=== PATIENT | female | born 1975 | race Two or more races ===

== ENCOUNTER 2023-03-19 16:51 | Outpatient (OUT) | payer OTHER, SELFPAY ==
[2023-03-19 17:11] LABS: Basophils Absolute Auto 0.1 10^3/uL (0.0-0.1); Basophils Percent Auto 1.4 % (0.2-2.0); Eosinophils Percent Auto 0.8 % (0.9-7.0); Hematocrit 41.2 % (36.0-48.0); Hemoglobin 13.8 g/dL (12.0-16.0); Lymphocytes Absolute Auto 1.5 10^3/uL (1.2-3.8); Lymphocytes Percent Auto 41.1 % (20.5-60.0); Mean Corpuscular HGB Conc 33.5 g/dL (29.9-35.2); Mean Corpuscular Hemoglobin 31.1 pg (26.7-34.0); Mean Corpuscular Volume 92.8 fL (81.0-99.0); Mean Platelet Volume 8.5 fL (9.5-13.5); Monocytes Absolute Auto 0.4 10^3/uL (0.3-0.8); Monocytes Percent Auto 11.5 % (1.7-12.0); Neutrophils Absolute Auto 1.7 10^3/uL (1.4-6.5); Neutrophils Percent Auto 45.2 % (43.0-75.0); Platelet Count 314 10^3/uL (150-450); Red Blood Count 4.44 10^6/uL (4.20-5.40); Red Cell Distribution Width 13.2 % (11.0-15.0); White Blood Count 3.7 10^3/uL (4.0-11.0)
[2023-03-19 17:15] LABS: Bilirubin Urine NEGATIVE (NEGATIVE); Blood Urine TRACE-I (NEGATIVE); Clarity Urine CLEAR (CLEAR); Color Urine YELLOW (YELLOW); Glucose Urine UA NEGATIVE (NEGATIVE); Ketones Urine TRACE mg/dL (NEGATIVE); Leukocyte Esterase Urine NEGATIVE (NEGATIVE); Nitrite Urine NEGATIVE (NEGATIVE); Protein Urine NEGATIVE (NEG/TRACE); Specific Gravity Urine 1.025 (1.005-1.025); Urobilinogen Urine 0.2 EU/dL (0.2-1.0)
[2023-03-19 17:24] LABS: Bacteria Urine NONE SEEN #/HPF (NONE SEEN); Cast Seen? NONE SEEN #/LPF (NONE SEEN); Crystals Seen? None Seen #/HPF (None Seen); Mucus Urine NONE SEEN (NONE SEEN); RBC Urine 0-2 #/HPF (0-2); Squamous Epithelial Cell Urine NONE SEEN #/LPF (NONE/RARE); WBC Urine NONE SEEN #/HPF (NONE SEEN)
[2023-03-19 17:26] LABS: Uric Acid 4.1 mg/dL (2.6-6.0)
[2023-03-19 17:33] LABS: Erythrocyte Sedimentation Rate 14 mm/hr (<=20)
[2023-03-19 17:36] LABS: C Reactive Protein <0.2 mg/dL (<=1.0)
[2023-03-21 06:14] LABS: Antistreptolysin O Ab 137.1 IU/mL (0.0-200.0); Rheumatoid Factor (RF) <10.0 IU/mL (<14.0)
[2023-03-23 14:09] LABS: ANA Direct Positive (Negative); Anti-DNA (DS) Ab Qn 1 IU/mL (0-9); RNP Antibodies 0.2 AI (0.0-0.9); Sjogren's Anti-SS-A 0.4 AI (0.0-0.9); Sjogren's Anti-SS-B >8.0 AI (0.0-0.9)
== END 2023-03-19 16:52 | disposition home or self-care (01) ==
PROVIDERS: PCP Nurse Practitioner; Visit Provider Nurse Practitioner
DX: R31.21 Asymptomatic microscopic hematuria (principal); D72.819 Decreased white blood cell count, unspecified
CPT/HCPCS: 36415; 81001; 84550; 85025; 85652; 86038; 86060; 86140; 86430

== ENCOUNTER 2024-04-19 15:33 | Outpatient (OUT) | payer OTHER, SELFPAY ==
[2024-04-19 15:51] LABS: Basophils Percent Auto 0.8 % (0.2-2.0); Eosinophils Percent Auto 0.8 % (0.9-7.0); Hemoglobin 13.5 g/dL (12.0-16.0); Immature Granulocytes Abs Auto 0.01 10^3/uL (0.00-0.03); Immature Granulocytes Pct Auto 0.2 % (0.0-0.5); Lymphocytes Absolute Auto 1.4 10^3/uL (1.2-3.8); Lymphocytes Percent Auto 29.9 % (20.5-60.0); Mean Corpuscular HGB Conc 33.8 g/dL (29.9-35.2); Mean Corpuscular Volume 94.8 fL (81.0-99.0); Mean Platelet Volume 8.8 fL (9.5-13.5); Monocytes Absolute Auto 0.4 10^3/uL (0.3-0.8); Monocytes Percent Auto 8.8 % (1.7-12.0); Neutrophils Absolute Auto 2.8 10^3/uL (1.4-6.5); Neutrophils Percent Auto 59.5 % (43.0-75.0); Platelet Count 296 10^3/uL (150-450); Red Blood Count 4.22 10^6/uL (4.20-5.40); Red Cell Distribution Width 12.6 % (11.0-15.0); White Blood Count 4.8 10^3/uL (4.0-11.0)
[2024-04-19 15:52] LABS: Bilirubin Urine NEGATIVE (NEGATIVE); Blood Urine NEGATIVE (NEGATIVE); Clarity Urine CLEAR (CLEAR); Color Urine YELLOW (YELLOW); Glucose Urine UA NEGATIVE (NEGATIVE); Ketones Urine NEGATIVE (NEGATIVE); Leukocyte Esterase Urine NEGATIVE (NEGATIVE); Nitrite Urine NEGATIVE (NEGATIVE); Protein Urine TRACE mg/dL (NEG/TRACE); Specific Gravity Urine >=1.030 (1.005-1.025); pH Urine 5.5 (5.0-9.0)
[2024-04-19 15:57] LABS: Urine Microscopic Indicated NO
[2024-04-20 09:26] LABS: Alanine Aminotransferase 67 U/L (14-59); Albumin Globulin Ratio 1.1; Albumin Level 3.9 g/dL (3.4-5.0); Alkaline Phosphatase 102 U/L (46-116); Aspartate Amino Transferase 32 U/L (15-37); BUN Creatinine Ratio 15.5; Bilirubin Total 0.6 mg/dL (0.2-1.0); Calcium 8.6 mg/dL (8.5-10.1); Chloride 105 mmol/L (98-107); Chol HDL Ratio 3.2; Cholesterol 178 mg/dL (<=200); Estimated GFR (African America >60 (>=60); Estimated GFR (Non-African Ame >60 (>=60); Globulin 3.5 g/dL; Glucose 103 mg/dL (74-106); HDL Cholesterol 56 mg/dL (40-60); LDL Cholesterol Calculated 104.2 mg/dL; Potassium 3.9 mmol/L (3.5-5.1); Sodium 140 mmol/L (136-145); Total Protein 7.4 g/dL (6.4-8.2); Triglycerides 89 mg/dL (<=150); VLDL CHOLESTEROL 17.8 mg/dL
[2024-04-20 09:31] LABS: Anion Gap 13.6; Carbon Dioxide 25.3 mmol/L (21.0-32.0)
== END 2024-04-19 15:34 | disposition home or self-care (01) ==
LOC: LAB 15:34
PROVIDERS: PCP Nurse Practitioner; Visit Provider Nurse Practitioner
DX: D72.819 Decreased white blood cell count, unspecified (principal); Z72.0 Tobacco use; E66.9 Obesity, unspecified; R31.21 Asymptomatic microscopic hematuria
CPT/HCPCS: 36415; 80053; 80061; 81003; 85025

== ENCOUNTER 2024-10-24 15:38 | Emergency (ER) | payer OTHER, SELFPAY ==
[2024-10-24 15:49] VITALS: BP 142/92; PULSE 115; TEMP 37.8; O2SAT 96; BMI 29.2
--- NOTE | 2024-10-24 15:57 | ED.GENADUL1 ---
HPI HPI - General Adult General Chief complaint: Headache Stated complaint: SEVERE HEAD PAIN, SHOOTING PAIN BACK DOWN LEG Time Seen by Provider: 10/24/24 15:50 Source: patient Mode of arrival: Wheelchair History of Present Illness HPI narrative: 49-year-old female presents to the emergency department for a chief complaint of headache. She has had it for 3 days. She did not realize she had a fever. She also has some pain going down the back of her left leg and has no history of sciatica. No injury to the leg or her head. She took sumatriptan at home but it did not help. Related Data Home Medications ?Medication ?Instructions ?Recorded ?Confirmed etodolac 400 mg tablet mg 10/24/24 sumatriptan succinate 100 mg tablet mg PO 10/24/24 tizanidine 4 mg tablet mg 10/24/24 trazodone 50 mg tablet mg 10/24/24 Allergies Allergy/AdvReac Type Severity Reaction Status Date / Time No Known Drug Allergies Allergy Verified 10/24/24 15:47 Opioid HPI Opioid Management Most Recent Opioid Data: Last Pain Scale 6 10/24/24 17:43 10/24/24 Last ED Pain Assessment 10/24/24 17:43 Last MAR Pain Assessment 10/24/24 16:32 Review of Systems ROS Narrative A ten point review of systems is negative except as noted above. PFSH PFSH Social History Little interest or pleasure in doing things: not at all Feeling down, depressed, or hopeless: not at all Exam Narrative Exam Narrative: Nurses note and vital signs reviewed and patient is not hypoxic. General: The patient appears well and in no apparent distress. Patient is resting comfortably on cart. Skin: Warm, dry, no pallor noted. There is no rash noted. Head: Normocephalic, atraumatic; neck supple, no nuchal rigidity Eye: Normal conjunctiva, no drainage, EOMI. PERRL Ears, Nose, Mouth, and Throat: oral mucosa is moist. Nares patent. Cardiovascular: Regular Rate and Rhythm Respiratory: Patient is in no distress, no accessory muscle use, lungs are clear to auscultation, no wheezing, rales or rhonchi Back: non-tender GI: Soft and nontender Musculoskeletal: No bruise or rash to her back. Left hip has full range of motion Neurological: A&O, normal speech; upper and lower extremity strength is symmetric and intact Psychiatric: Cooperative Constitutional Vital Signs, click to edit/add: Last Vital Signs Temp 99.0 F 10/24/24 17:42 Pulse 99 H 10/24/24 17:42 Resp 14 10/24/24 17:42 BP 142/92 H 10/24/24 15:49 Pulse Ox 97 10/24/24 17:42 O2 Del Method Room Air 10/24/24 16:52 Course Vital Signs Vital signs: Vital Signs Temperature 100.1 F 10/24/24 15:49 Pulse Rate 115 H 10/24/24 15:49 Respiratory Rate 22 H 10/24/24 15:49 Blood Pressure 142/92 H 10/24/24 15:49 Pulse Oximetry 96 10/24/24 15:49 Oxygen Delivery Method Room Air 10/24/24 15:49 Temperature 99.0 F 10/24/24 17:42 Pulse Rate 99 H 10/24/24 17:42 Respiratory Rate 14 10/24/24 17:42 Blood Pressure 142/92 H 10/24/24 15:49 Pulse Oximetry 97 10/24/24 17:42 Oxygen Delivery Method Room Air 10/24/24 16:52 Medical Decision Making MDM Narrative Medical decision making narrative: The patient feels much better after being given IV fluids and IV morphine. She was noted to have a WBC of 1.5 and she has had low WBCs in the past, 3-4000. She has never had this investigated and she was referred to Dr. Sullivan for appropriate follow-up. My clinical impression is that she has a viral illness and antibiotics are not indicated. Treatment diagnosis and follow-up were discussed with the patient. Differential Diagnosis Differential Diagnosis: COVID, influenza, viral illness Lab Data Lab results reviewed: Yes I reviewed the patient's lab results Labs: Lab Results 10/24/24 10/24/24 Range/Units 16:20 16:25 WBC 1.5 L (4.0-11.0) 10^3/uL RBC 4.29 (4.20-5.40) 10^6/uL Hgb 13.5 (12.0-16.0) g/dL Hct 39.7 (36.0-48.0) % MCV 92.5 (81.0-99.0) fL MCH 31.5 (26.7-34.0) pg MCHC 34.0 (29.9-35.2) g/dL RDW 13.1 (11.0-15.0) % Plt Count 247 (150-450) 10^3/uL MPV 9.6 (9.5-13.5) fL Seg Neuts % (Manual) 78.0 H (43.0-75.0) Lymphocytes % (Manual) 18.0 L (20.5-60.0) % Monocytes % (Manual) 4.0 (1.7-12.0) % Eosinophils % (Manual) 0.0 L (0.9-7.0) % Basophils % (Manual) 0.0 L (0.2-2.0) % Neutrophils # (Manual) 1.17 L (1.4-6.5) 10^3/uL Lymphocytes # (Manual) 0.27 L (1.20-3.80) 10^3/uL Monocytes # (Manual) 0.06 L (0.30-0.80) 10^3/uL Eosinophils # (Manual) 0.00 (0.00-0.70) 10^3/uL Basophils # (Manual) 0.00 (0.00-0.10) 10^3/uL Sodium 139 (136-145) mmol/L Potassium 3.3 L (3.5-5.1) mmol/L Chloride 106 (98-107) mmol/L Carbon Dioxide 24.3 (21.0-32.0) mmol/L Anion Gap 12.0 BUN 9.0 (7.0-18.0) mg/dL Creatinine 0.58 (0.55-1.02) mg/dL Est GFR ( Amer) >60 (>=60 mL/min/1.73m^2) Est GFR (Non-Af Amer) >60 (>=60 mL/min/1.73m^2) BUN/Creatinine Ratio 15.5 Glucose 107 H (74-106) mg/dL Calcium 7.9 L (8.5-10.1) mg/dL Influenza Type A Ag Negative Influenza Type B Ag Negative SARS-CoV-2 Ag (CV2AG) Negative (NEGATIVE) Discharge Plan Discharge Chief Complaint: Headache Clinical Impression: Viral illness, Leukopenia Patient Disposition: Home, Self-Care Time of Disposition Decision: 17:46 Condition: Good Mode of Transportation: Private Vehicle Prescriptions / Home Meds: No Action trazodone 50 mg tablet tizanidine 4 mg tablet sumatriptan succinate 100 mg tablet PO etodolac 400 mg tablet Print Language: Armenian Instructions: Viral Syndrome (ED) Referrals: Kimberly Sullivan MD [Physician] - 1 week Joselyn Arizmendi NP [Primary Care Provider] - 1 week
--- OUTSIDE RECORDS SUMMARY | 2024-10-24 16:03 | XMS_ITS | CCD ---
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 Name Role Phone AICHHOLZ, RECORDS CLERK JOSELYN Admitting Unavailable AICHHOLZ, RECORDS CLERK JOSELYN Attending Unavailable AICHHOLZ, RECORDS CLERK JOSELYN Primary Care Unavailable AICHHOLZ, RECORDS CLERK JOSELYN Consulting Unavailable Reuben Vergara Consulting Unavailable AICHHOLZ, RECORDS CLERK JOSELYN Admitting Unavailable AICHHOLZ, RECORDS CLERK JOSELYN Attending Unavailable AICHHOLZ, RECORDS CLERK JOSELYN Primary Care Unavailable AICHHOLZ, RECORDS CLERK JOSELYN Consulting Unavailable KIRAN JEAN Admitting Unavailable KIRAN JEAN Attending Unavailable AICHHOLZ, RECORDS CLERK JOSELYN Primary Care Unavailable DR HAYDEE DE JESUS V Consulting Unavailable KIRAN JEAN Consulting Unavailable AICHHOLZ, RECORDS CLERK JOSELYN Admitting Unavailable AICHHOLZ, RECORDS CLERK JOSELYN Attending Unavailable AICHHOLZ, RECORDS CLERK JOSELYN Primary Care Unavailable Aichholz HUMAN RESOURCE OFFICER, Joselyn Unavailable Michael Tellez MD Primary Care Provider AICHHOLZ, JOSELYN Attending Unavailable AICHHOLZ, JOSELYN Attending Unavailable Aichholz HUMAN RESOURCE OFFICER, Joselyn Unavailable Medications Current Medications Medication Drug Class(es) Dates Sig (Normalized) Sig (Original) amitriptyline hydrochloride 10 mg oral tablet (2 sources) Tricyclic Antidepressant take 1 tablet by mouth at bedtime amitriptyline (Elavil) 10 MG tablet Take 10 mg by mouth at bedtime 0 Active Atogepant (Qulipta) 60 MG tablet (8 sources) take 1 tablet by mouth once daily Atogepant (Qulipta) 60 MG tablet Take 60 mg by mouth Daily Active SUMAtriptan 100 mg oral tablet (15 sources) Serotonin-1b and Serotonin-1d Receptor Agonist Start: 08-07-2024 SUMAtriptan (Imitrex) 100 MG tablet Indications: Migraine without status migrainosus, not intractable, unspecified migraine type (CMS/HCC) TAKE 1 TAB AT MIGRAINE ONSET MAY REPEAT 1 TAB IN 2HRS IF NEEDED *MAX 2/24HRS & 2X PER WK 9 tablet 1 08/07/2024 Active Start: 08-07-2024 SUMAtriptan (I mitrex) 100 MG tablet Indications: Migraine without status migrainosus, not intractable, unspecified migraine type (CMS/HCC) TAKE 1 TAB AT MIGRAINE ONSET MAY REPEAT 1 TAB IN 2HRS IF NEEDED *MAX 2/24HRS & 2X PER WK 9 tablet 1 08/07/2024 Active Start: 03-27-2024 End: 08-07-2024 SUMAtriptan (Imitrex) 100 MG tablet Indications: Migraine without status migrainosus, not intractable, unspecified migraine type (CMS/HCC) TAKE 1 TAB AT MIGRAINE ONSET MAY REPEAT 1 TAB IN 2HRS IF NEEDED *MAX 2/24HRS & 2X PER WK 9 tablet 1 06/05/2024 08/07/2024 Discontinued Start: 09-28-2023 SUMAtriptan (I mitrex) 100 MG tablet Indications: Migraine without status migrainosus, not intractable, unspecified migraine type (CMS/HCC) May take 1 pill at the onset of a migraine CASTORENA, may repeat in 2 hours if needed. No more than 2 pills in 24 hours, and no more than twice a week 9 tablet 1 09/28/2023 Active Start: 08-03-2023 End: 09-28-2023 SUMAtriptan (Imitrex) 100 MG tablet Indications: Migraine, unspecified, intractable, with status migrainosus (CMS/HCC) TAKE 1 TAB AT ONSET OF MIGRAINE CASTORENA, MAY REPEAT IN 2 HRS IF NEEDED. MAX 2 TABS/24HRS, 2 TIMES/WK 9 tablet 1 08/03/2023 09/28/2023 Discontinued tiZANidine 4 mg oral tablet (15 sources) Central alpha-2 Adrenergic Agonist Start: 03-27-2024 End: 09-29-2024 take 1 tablet by mouth once tiZANidine (Zanaflex) 4 MG tablet Indications: Neck pain Take 1 tablet (4 mg) by mouth every 12 (twelve) hours if needed for muscle spasms 180 tablet 07/01/2024 09/29/2024 Active Start: 09-28-2023 End: 10-28-2023 take 1 tablet by mouth once tiZANidine (Zanaflex) 4 MG tablet Indications: Neck pain Take 1 tablet (4 mg) by mouth every 12 (twelve) hours if needed for muscle spasms 180 tablet 0 09/28/2023 10/28/2023 Active take 1 capsule by mo uth twice daily as needed for muscle spasms tiZANidine (Zanaflex) 4 MG capsule Take 4 mg by mouth 2 (two) times a day as needed for muscle spasms 0 Active traZODone hydrochloride 50 mg oral tablet (14 sources) Serotonin Reuptake Inhibitor Start: 06-13-2024 End: 10-09-2024 take 1 tablet by mouth at bedtime traZODone (Desyrel) 50 MG tablet Indications: Insomnia Take 1 tablet (50 mg) by mouth at bedtime 90 tablet 07/11/2024 10/09/2024 Active Start: 12-23-2023 take 1 tablet by doroteo at bedtime traZODone (Desyrel) 50 MG tablet Indications: Insomnia Take 1 tablet (50 mg) by mouth at bedtime 90 tablet 1 12/23/2023 Active Start: 07-16-2023 End: 10-14-2023 take 1 tablet by mouth at bedtime traZODone (Desyrel) 50 MG tablet Indications: Insomnia, unspecified , Insomnia Take 1 tablet (50 mg) by mouth at bedtime. 90 tablet 1 07/16/2023 10/14/2023 Active Completed/Discontinued Medications Medication Drug Class(es) Dates Sig (Normalized) Sig (Original) etodolac 400 mg oral tablet (4 sources) Nonsteroidal Anti-inflammatory Drug Start: 12-08-2023 End: 04-19-2024 take 1 tablet by mouth twice daily as needed etodolac (Lodine) 400 MG tablet Take 400 mg by mouth 2 (two) times a day as needed 12/08/2023 04/19/2024 Discontinued (Therapy completed) Problems Active Problems Problem Classification Problem Date Documented Da te Episodic/Chronic Anxiety disorders (12 sources) Mixed anxiety and depressive disorder; Translations: [Anxiety disorder, unspecified] Onset: 09-28-2023 09-28-2023 Chronic Diseases of white blood cells (11 sources) Leukopenia; Translations: [Decreased white blood cell count, unspecified] Onset: 11-03-2023 11-03-2023 Chronic Headache; including migraine (19 sources) Refractory migraine; Translations: [Migraine, unspecified, intractable, with status migrainosus] Onset: 09-28-2023 09-28-2023 Chronic Other nutritional; endocrine; and metabolic disorders (11 sources) Body mass index 30+ - obesity; Translations: [Obesity, unspecified] Onset: 11-26-2023 11-26-2023 Chronic Residual codes; unclassified (4 sources) Other specified health status; Translations: [OTHER SPECIFIED HEALTH STATUS] Onset: 11-05-2022 Episodic Residual codes; unclassified (2 sources) Insomnia; Translations: [Insomnia, unspecified] 06-12-2024 Episodic Past or Other Problems Problem Classification Problem Date Documented Date Episodic/Chronic Genitourinary symptoms and ill-defined conditions (11 sources) Asymptomatic microscopic hematuria; Translations: [Asymptomatic microscopic hematuria] Onset: 11-03-2023 11-03-2023 Episodic Immunizations and screening for infectious disease (14 sources) Anti-nuclear factor positive; Translations: [Other specified abnormal immunological findings in serum] Onset: 11-03-2023 11-03-2023 Episodic Other acquired deformities (11 sources) Equinus contracture of the ankle; Translations: [Contracture, left ankle] Onset: 11-03-2023 Resolved: 11-03-2023 11-03-2023 Chronic Other connective tissue disease (4 sources) Pain in left foot; Translations: [PAIN IN LEFT FOOT] Onset: 02-11-2022 Episodic Other connective tissue disease (11 sources) Ganglion cyst of right hand; Translations: [Ganglion, right hand] Onset: 11-03-2023 11-03-2023 Episodic Other screening for suspected conditions (not mental disorders or infectious disease) (20 sources) Encounter for screening mammogram for malignant neoplasm of breast; Translations: [Patient encounter status] Onset: 11-25-2022 Episodic Residual codes; unclassified (11 sources) Tobacco user; Translations: [Tobacco use] Onset: 11-03-2023 11-03-2023 Episodic Spondylosis; intervertebral disc disorders; other back problems (20 sources) Neck pain; Translations: [Cervicalgia] Onset: 01-22-2021 09-27-2023 Episodic Viral infection (11 sources) Herpes zoster without complication; Translations: [Zoster without complications] Onset: 11-24-2023 11-24-2023 Episodic Results Test Name Value Interpretation Reference Range Facility ALL CBC WITH AUTO DIFFon BASOPHILS ABSOLUTE AUTO 0.0 [facility] Basophils/100 WBC (Bld) 0.8 % 0.2 - 2.0 % [facility] Eosinophils/100 WBC (Bld) 0.8 % Low 0.9 - 7.0 % [facility] Erythrocyte distribution width (RBC) [Ratio] 12.6 % 11.0 - 15.0 % [facility] Hematocrit (Bld) [Volume fraction] 40.0 % 36.0 - 48.0 % [facility] Hemoglobin (Bld) [Mass/Vol] 13.5 g/dL 12.0 - 16.0 g/dL [facility] IMMATURE GRANULOCYTES ABS AUTO 0.01 [facility] Immature granulocytes/100 WBC (Bld) 0.2 % 0.0 - 0.5 % [facility] Interpretation and review of laboratory results Abnormal [facility] LYMPHOCYTES ABSOLUTE AUTO 1.4 [facility] Lymphocytes/100 WBC (Bld) 29.9 % 20.5 - 60.0 % [facility] MCH (RBC) [Entitic mass] 32.0 pg 26.7 - 34.0 pg [facility] MCHC (RBC) [Mass/Vol] 33.8 g/dL 29.9 - 35.2 g/dL [facility] MCV (RBC) [Entitic vol] 94.8 fL 81.0 - 99.0 fL [facility] MONOCYTES ABSOLUTE AUTO 0.4 [facility] Monocytes/100 WBC (Bld) 8.8 % 1.7 - 12.0 % [facility] NEUTROPHILS ABSOLUTE AUTO 2.8 [facility] Neutrophils/100 WBC (Bld) 59.5 % 43.0 - 75.0 % [facility] Platelet mean volume (Bld) [Entitic vol] 8.8 fL Low 9.5 - 13.5 fL [facility] EO # 0.0 [facility] PLT 296 [facility] RBC 4.22 [facility] WBC 4.8 [facility] UA (CLEAN/CATCH) MICROSC OPIC IF INDICATEon 04-19-2024 BILIRUBIN URINE Negative NEGATIVE [facility] BLOOD URINE Negative NEGATIVE [facility] Clarity (U) CLEAR CLEAR [facility] Color (U) YELLOW YELLOW [facility] GLUCOSE URINE UA Negative NEGATIVE mg/dL [facility] Interpretation and review of laboratory results Abnormal [facility] Ketones Ql (U) Negative NEGATIVE mg/dL [facility] Leukocyte esterase Test strip Ql (U) Negative NEGATIVE [facility] NITRITE URINE Negative NEGATIVE [facility] pH (U) 5.5 [pH] 5.0 - 9.0 [facility] PROTEIN URINE TRACE NEG/TRACE mg/dL [facility] SPECIFIC GRAVITY URINE >=1.030 Abnormal 1.005 - 1.025 [facility] URINE MICROSCOPIC INDICATED NO [facility] UROBILINOGEN URINE 1.0 EU/dL 0.2 - 1.0 EU/dL [facility] MG MAMM SCREEN 3D RODGER CADon 11-25-2022 MG MAMM SCREEN 3D RODGER CAD Patient: RAMON DUBOIS Exam Date: 11/25/2022 : 1975 Gender:F Ordering : CESAR ARIZMENDI [facility] Admission #: [id number] Family : Order #: [id number] CLICK HERE TO VIEW EXAM RADIOLOGY REPORT PROCEDURE: MAMMOGRAM SCREENING 3D BILATERAL CAD COMPARISON: MAMMO POST BIOPSY BILATERAL, 09/17/2021. MG MAMM RODGER DIAG W CAD, 08/13/2021. INDICATIONS: Screening mammography Calculator Name NCI Breast Cancer Risk Assessment Tool 5 Year Breast Cancer Risk Not Reported. Lifetime Breast Cancer Risk Not Reported. Personal Breast Cancer No Personal Ovarian Cancer No Treatments None Family Cancers None LOCATION: [facility] BREAST COMPOSITION: Scattered areas fibroglandular density. FINDINGS: DIAGNOSTIC CATEGORY 2--BENIGN FINDING: RIGHT BREAST: No significant suspicious finding. Stable biopsy marker clip within upper-outer quadrant. No significant change has occurred. LEFT BREAST: No significant suspicious finding. Stable biopsy marker clip within upper-outer quadrant. No significant change has occurred. RECOMMENDATIONS: ROUTINE MAMMOGRAM AND CLINICAL EVALUATION IN 12 MONTHS. PLEASE NOTE: A NORMAL MAMMOGRAM DOES NOT EXCLUDE THE POSSIBILITY OF BREAST CANCER. A CLINICALLY SUSPICIOUS PALPABLE LUMP SHOULD BE BIOPSIED. Dictated by: Reuben Vergara M.D. on 11/26/2022 at 12:21 Approved by: Reuben Vergara M.D. on 11/26/2022 at 12:26 Normal [facility] CBC AUTO DIFFon 11-05-2022 BASO # 0.0 103/ul Normal 0.0-0.1 [facility] Comment on above: Performed By: #### C BC #### [facility] [address] [address] [address] Steve Tenorio Basophils/100 WBC (Bld) 1.1 % Normal 0.2-2.0 [facility] Comment on above: Performed By: #### C BC #### [facility] [address] [address] [address] Steve Tenorio EO # 0.0 103/ul Normal 0.0-0.7 [facility] Comment on above: Performed By: #### C BC #### [facility] [address] [address] [address] Steve Tenorio Eosinophils/100 WBC (Bld) 0.8 % Critically low 0.9-7.0 [facility] Comment on above: Performed By: #### C BC #### [facility] [address] [address] [address] Steve Tenorio Erythrocyte distribution width (RBC) [Ratio] 12.4 % Normal 11.0-15.0 [facility] Comment on above: Performed By: #### C BC #### [facility] [address] [address] [address] Steve Tenorio Hematocrit (Bld) [Volume fraction] 41.2 % Normal 36.0-48.0 [facility] Comment on above: Performed By: #### C BC #### [facility] [address] [address] [address] Steve Tenorio Hemoglobin (Bld) [Mass/Vol] 14.0 g/dL Normal 12.0-16.0 [facility] Comment on above: Performed By: #### C BC #### [facility] [address] [address] [address] Steve Tenorio IG # 0.01 10e3/ul Normal 0.00-0.03 [facility] Comment on above: Performed By: #### C BC #### [facility] [address] [place] [address] Dr. Steve Tenorio IG % 0.3 % Normal 0.0-0.5 [facility] Comment on above: Performed By: #### C BC #### [facility] [address] [place] [address] Dr. Steve Tenorio LYMPH # 1.4 103/ul Normal 1.2-3.8 [facility] Comment on above: Performed By: #### C BC #### [facility] [address] [place] [address] Dr. Steve Tenorio Lymphocytes/100 WBC (Bld) 39.3 % Normal 20.5-60.0 [facility] Comment on above: Performed By: #### C BC #### [facility] [address] [place] [address] Dr. Steve Tenorio MANUAL DIFF REQ NO Normal [facility] Comment on above: Performed By: #### C BC #### [facility] [address] [place] [address] Dr. Steve Tenorio MCH (RBC) [Entitic mass] 30.8 pg Normal 26.7-34.0 [facility] Comment on above: Performed By: #### C BC #### [facility] [address] [place] [address] Dr. Steve Tenorio MCHC (RBC) [Mass/Vol] 34.0 g/dL Normal 29.9-35.2 [facility] Comment on above: Performed By: #### C BC #### [facility] [address] [place] [address] Dr. Steve Tenorio MCV (RBC) [Entitic vol] 90.7 fL Normal 81.0-99.0 [facility] Comment on above: Performed By: #### C BC #### [facility] [address] [place] [address] Dr. Steve Tenorio MONO # 0.3 103/ul Normal 0.3-0.8 [facility] Comment on above: Performed By: #### C BC #### [facility] [address] [address] [address] Steve Tenorio Monocytes/100 WBC (Bld) 9.3 % Normal 1.7-12.0 [facility] Comment on above: Performed By: #### C BC #### [facility] [address] [address] [address] Steve Tenorio NEUT # 1.8 103/ul Normal 1.4-6.5 [facility] Comment on above: Performed By: #### C BC #### [facility] [address] [address] [address] Steve Tenorio Neutrophils/100 WBC (Bld) 49.2 % Normal 43.0-75.0 [facility] Comment on above: Performed By: #### C BC #### [facility] [address] [place] [address] Dr. Steve Tenorio Platelet mean volume (Bld) [Entitic vol] 8.8 fL Critically low 9.5-13.5 [facility] Comment on above: Performed By: #### C BC #### [facility] [address] [place] [address] Dr. Steve Tenorio PLT 306 103/ul Normal 150-450 [facility] Comment on above: Performed By: #### C BC #### [facility] [address] [place] [address] Dr. Steve Tenorio RBC 4.54 106/ul Normal 4.20-5.40 [facility] Comment on above: Performed By: #### C BC #### [facility] [address] [place] [address] Dr. Steve Tenorio WBC 3.6 103/ul Critically low 4.0-11.0 [facility] Comment on above: Performed By: #### C BC #### [facility] [address] [place] [address] Dr. Steve Tenorio LIPID PROFILEon 11-05-2022 CHOL-HDL RATIO NORM SEE BELOW Normal [facility] Comment on above: Result Comment: 3.3 - 4.4 LOW RISK 4.4 - 7.1 AVERAGE RISK 7.1 - 11.0 MODERATE RISK >11.0 HIGH RISK Performed By: #### C MP, LIPID #### [facility] [address] [address] [address] Steve Tenorio Cholesterol [Mass/Vol] 198 mg/dL Normal <=200 [facility] Comment on above: Performed By: #### C MP, LIPID #### [facility] [address] [address] [address] Stvee Tenorio Cholesterol in HDL [Mass/Vol] 63 mg/dL Critically high 40-60 [facility] Comment on above: Performed By: #### C MP, LIPID #### [facility] [address] [place] [address] Dr. Steve Tenorio Cholesterol in LDL [Mass/Vol] 123.0 mg/dL Normal [facility] Comment on above: Performed By: #### C MP, LIPID #### [facility] [address] [place] [address] Dr. Steve Tenorio Cholesterol.total/Ch olesterol in HDL [Mass ratio] 3.1 {ratio} Normal [facility] Comment on above: Performed By: #### C MP, LIPID #### [facility] [address] [place] [address] Dr. Steve Tenorio HDL NORMAL > or = 60 mg/dl - LOW CARDIOVASCULAR RISK <40 mg/dl - HIGH CARDIOVASCULAR RISK Normal [facility] Comment on above: Performed By: #### C MP, LIPID #### [facility] [address] [place] [address] Dr. Steve Tenorio LDL CALC NORMAL SEE BELOW Normal [facility] Comment on above: Result Comment: <100 mg/dl OPTIMAL 100 - 129 mg/dl NEAR OR ABOVE OPTIMAL 130 - 159 mg/dl BORDERLINE HIGH 160 - 189 mg/dl HIGH >190 mg/dl VERY HIGH Performed By: #### C MP, LIPID #### [facility] [address] [place] [address] Dr. Steve Tenorio Triglyceride [Mass/Vol] 60 mg/dL Normal <=150 [facility] Comment on above: Performed By: #### C MP, LIPID #### [facility] [address] [place] [address] Dr. Steve Tenorio VLDL CALC 12.0 mg/dL Normal [facility] Comment on above: Performed By: #### C MP, LIPID #### [facility] [address] [place] [address] Dr. Steve Tenorio PROF 14(COMP METB)on 023 Albumin [Mass/Vol] 4.1 g/dL Normal 3.4-5.0 [facility] Comment on above: Performed By: #### C MP, LIPID #### [facility] [address] [place] [address] Dr. Steve Tenorio Albumin/Globulin [Mass ratio] 1.1 {ratio} Normal [facility] Comment on above: Performed By: #### C MP, LIPID #### [facility] [address] [place] [address] Dr. Steve Tenorio ALP [Catalytic activity/Vol] 84 U/L Normal 46-116 [facility] Comment on above: Performed By: #### C MP, LIPID #### [facility] [address] [place] [address] Dr. Steve Tenorio ALT [Catalytic activity/Vol] 29 U/L Normal 14-59 [facility] Comment on above: Performed By: #### C MP, LIPID #### [facility] [address] [place] [address] Dr. Steve Tenorio Anion gap [Moles/Vol] 14.2 mmol/L Normal [facility] Comment on above: Performed By: #### C MP, LIPID #### [facility] [address] [place] [address] Dr. Steve Tenorio AST [Catalytic activity/Vol] 22 U/L Normal 15-37 [facility] Comment on above: Performed By: #### C MP, LIPID #### [facility] [address] [place] [address] Dr. Steve Tenorio Bilirubin [Mass/Vol] 0.7 mg/dL Normal 0.2-1.0 [facility] Comment on above: Performed By: #### C MP, LIPID #### [facility] [address] [address] [address] Steve Tenorio Calcium [Mass/Vol] 8.8 mg/dL Normal 8.5-10.1 [facility] Comment on above: Performed By: #### C MP, LIPID #### [facility] [address] [address] [address] Steve Tenorio Chloride [Moles/Vol] 104 mmol/L Normal 98-107 [facility] Comment on above: Performed By: #### C MP, LIPID #### [facility] [address] [place] [address] Dr. Steve Tenorio CO2 [Moles/Vol] 25.7 mmol/L Normal 21.0-32.0 [facility] Comment on above: Performed By: #### C MP, LIPID #### [facility] [address] [place] [address] Dr. Steve Tenorio Creatinine [Mass/Vol] 0.56 mg/dL Normal 0.55-1.02 [facility] Comment on above: Performed By: #### C MP, LIPID #### [facility] [address] [address] [address] Steve Tenorio EGFR-AF PUERTO RICAN >60 Normal >=60 [facility] Comment on above: Performed By: #### C MP, LIPID #### [facility] [address] [place] [address] Dr. Steve Tenorio EGFR-NON AF PUERTO RICAN >60 Normal >=60 [facility] Comment on above: Performed By: #### C MP, LIPID #### [facility] [address] [place] [address] Dr. Steve Tenorio Globulin (S) [Mass/Vol] 3.6 g/dL Normal [facility] Comment on above: Performed By: #### C MP, LIPID #### [facility] [address] [address] [address] Steve Tenorio Glucose [Mass/Vol] 103 mg/dL Normal 74-106 [facility] Comment on above: Performed By: #### C MP, LIPID #### [facility] [address] [place] [address] Dr. Steve Tenorio Potassium [Moles/Vol] 3.9 mmol/L Normal 3.5-5.1 [facility] Comment on above: Performed By: #### C MP, LIPID #### [facility] [address] [place] [address] Dr. Steve Tenorio Protein [Mass/Vol] 7.7 g/dL Normal 6.4-8.2 [facility] Comment on above: Performed By: #### C MP, LIPID #### [facility] [address] [place] [address] Dr. Steve Tenorio Sodium [Moles/Vol] 140 mmol/L Normal 136-145 [facility] Comment on above: Performed By: #### C MP, LIPID #### [facility] [address] [place] [address] Dr. Steve Tenorio Urea nitrogen [Mass/Vol] 10.0 mg/dL Normal 7.0-18.0 [facility] Comment on above: Performed By: #### C MP, LIPID #### [facility] [address] [place] [address] Dr. Steve Tenorio Urea nitrogen/Creatinine [Mass ratio] 17.9 mg/mg Normal [facility] Comment on above: Performed By: #### C MP, LIPID #### [facility] [address] [place] [address] Dr. Steve Tenorio UA RANDOM W/MICROSCOPICon BACTERIA NONE SEEN Normal NONE SEEN [facility] Comment on above: Performed By: #### U AMIC #### [facility] [address] [place] [address] Dr. Steve Tenorio Bilirubin Ql (U) Negative Normal NEGATIVE [facility] Comment on above: Performed By: #### U AMIC #### [facility] [address] [place] [address] Dr. Steve Tenorio CAST NONE SEEN Normal NONE SEEN [facility] Comment on above: Performed By: #### U AMIC #### [facility] [address] [place] [address] Dr. Steve Tenorio Clarity (U) CLEAR Normal CLEAR [facility] Comment on above: Performed By: #### U AMIC #### [facility] [address] [address] [address] Steve Tenorio Color (U) YELLOW Normal YELLOW [facility] Comment on above: Performed By: #### U AMIC #### [facility] [address] [address] [address] Steve Tenorio Crystals LM Nom (Urine sed) NONE SEEN Normal NONE SEEN [facility] Comment on above: Performed By: #### U AMIC #### [facility] [address] [address] [address] Steve Tenorio Epithelial cells LM Ql (Urine sed) FEW Abnormal NONE SEEN /RARE [facility] Comment on above: Performed By: #### U AMIC #### [facility] [address] [address] [address] Steve Tenorio Glucose Ql (U) Negative Normal NEGATIVE [facility] Comment on above: Performed By: #### U AMIC #### [facility] [address] [address] [address] Steve Tenorio Hemoglobin Ql (U) Negative Normal NEGATIVE [facility] Comment on above: Performed By: #### U AMIC #### [facility] [address] [address] [address] Steve Tenorio Ketones Ql (U) Negative Normal NEGATIVE [facility] Comment on above: Performed By: #### U AMIC #### [facility] [address] [address] [address] Steve Tenorio LEUKOCYTES Negative Normal NEGATIVE [facility] Comment on above: Performed By: #### U AMIC #### [facility] [address] [address] [address] Steve Tenorio MUCOUS SMALL Abnormal NONE SEEN [facility] Comment on above: Performed By: #### U AMIC #### [facility] [address] [address] [address] Steve Tenorio Nitrite Ql (U) Negative Normal NEGATIVE [facility] Comment on above: Performed By: #### U AMIC #### [facility] [address] [place] [address] Dr. Steve Tenorio pH (U) 6.0 [pH] Normal 5-9 [facility] Comment on above: Performed By: #### U AMIC #### [facility] [address] [place] [address] Dr. Steve Tenorio RBC 5-10 Abnormal 0-2 [facility] Comment on above: Performed By: #### U AMIC #### [facility] [address] [place] [address] Dr. Steve Tenorio SPEC GRAVITY 1.025 Normal 1.005-<=1.025 [facility] Comment on above: Performed By: #### U AMIC #### [facility] [address] [place] [address] Dr. Steve Tenorio UA PROTEIN Negative Normal NEGATIVE/ TRACE [facility] Comment on above: Performed By: #### U AMIC #### [facility] [address] [place] [address] Dr. Steve Tenorio Urobilinogen Qn (U) 0.2 {Julissa'U}/dL Normal 0.2 - 1. 0 [facility] Comment on above: Performed By: #### U AMIC #### [facility] [address] [place] [address] Dr. Steve Tenorio WBC 0-2 Abnormal NONE SEEN [facility] Comment on above: Performed By: #### U AMIC #### [facility] [address] [place] [address] Dr. Steve Tenorio [facility] 02-15-2021 [facility] HNO ID: [id number] Author: Charla Cullen, GARRISON Service: ? Author Type: Gynecological Assistant Type: Allied Health Filed: 02/15/2021 1:48 PM Note Text: Radiology Service Progress Note PATIENT NAME: Ramon Dubois DATE OF SERVICE: February 15, 2021 TIME: 1:48 PM PATIENT IDENTITY VERIFICATION COMPLETED USING TWO (2) IDENTIFIERS: Name and Date of confirmed by patient verbally. FALL SCREENING: Has the patient had 2 falls in the last year or 1 fall with injury or currently using an Ambulatory Assistive Device (Walker, Cane, Wheelchair, Crutches, etc.)? No PATIENT GENDER DATA: Female. status: : No status: NO. PATIENT RELEVANT IMPLANT DATA REVIEWED: Not Applicable RADIOLOGY DEPARTMENT: CT; Exam(s) Completed: CTA Brain PERIPHERAL IV DATA: Inpatient: see LDA documentation SIGNED BY: GARRISON Mendez February 15, 2021 1:48 PM [facility] CTA HEAD W IVCONon CTA HEAD W IVCON * * *Final Report* * * DATE OF EXAM: Feb 15 2021 1:53PM FVC 0022 - CTA HEAD W IVCON / PROCEDURE REASON: multiple diagnoses * * * * Physician Interpretation * * * * EXAMINATION: CTA HEAD W IVCON HISTORY: Family history of ischemic heart disease and other diseases of the circulatory system Family history of cerebral aneurysm TECHNIQUE: Spiral high resolution axial images were obtained through the head following bolus administration of intravenous contrast for CT angiography. 3D maximum intensity projection images were created, reviewed and archived . MQ: CTAB_4 Contrast: 80 mL Omnipaque [address] Radiation dose: Integrated Dose-Length Product (DLP) for this visit = 294 mGy*cm. CT Dose Reduction Employed: Automated exposure control (AEC) COMPARISON: None. RESULT: BRAIN: Evaluation of the individual slices of the CTA demonstrates no evidence of an acute stroke. ASPECT Score = 10 Spot Sign Presence: Not Applicable Spot Sign Number: Not Applicable ARTERIOGRAM: The petrous, cavernous, and supraclinoid internal carotid arteries are patent. Anterior cerebral arteries and middle cerebral arteries are patent. Intracranial vertebral arteries, basilar artery, and posterior cerebral arteries are patent. No vessel cutoffs or aneurysms are identified. Special Delivery Carrier (topogram) images: Noncontributory. IMPRESSION: No large vessel occlusion or high-grade stenosis. Arterial blood flow was measured to detect acute large vessel occlusion by computer aided detection software: Not Performed. Concordance between software and imaging review: Not Applicable. Malted Milk Masher: PSCB Transcribe Date/Time: Feb 15 2021 2:23P Dictated by : RADHA DUMONT MD This examination was interpreted and the report reviewed and electronically signed by: RADHA DUMONT MD on Feb 15 2021 2:28PM EST [id number] CN [facility] NURSING PROGon 02-15-2021 NURSING PROG HNO ID: [id number] Author: Tanvi Hall RN Service: Radiology Author Type: Registered Nurse Type: Nursing Progress Note Filed: 02/15/2021 1:34 PM Note Text: Radiology Service Progress Note DATE OF SERVICE: February 15, 2021 TIME: 1:33 PM PATIENT WEIGHT: 180LBS PATIENT IDENTITY VERIFICATION COMPLETED USING TWO (2) STANDARD IDENTIFIERS: Name and Date of confirmed by patient verbally and Name and Date of confirmed by identification band. FALL SCREENING: Has the patient had 2 falls in the last year or 1 fall with injury or currently using an Ambulatory Assistive Device (Walker, Cane, Wheelchair, Crutches, etc.)? No PATIENT GENDER DATA: Female. status: : No status: NO. ALLERGIES: Reviewed and unchanged CONTRAST ALLERGY: No EXAM: CT -CONTRAST INDUCED NEPHROPATHY RISK FACTORS: Not applicable CREATININE: No results found for: CREAT, EGFROTH, EGFRAA P.O.C.T. RESULTS: N/A February 15, 2021 TREATMENT: N/A and No Hydration needed. IV SITE: Ambulatory: A peripheral IV was started in the Right forearm with a Angio cath: 20 gauge.i.25 diffusics under ultrasound guidance IV SITE APPEARANCE: Clean,Dry and Intact SIGNATURE: Tanvi Hall RN PATIENT NAME: Ramon Dubois DATE: February 15, 2021 TIME: 1:33 PM [facility] Vital Signs Date Time Vital Sign Value Performing Clinician Gti skyler 04-19-2024 14:33-0400 Body height 165.1 cm Joselyn Arizmendi HUMAN RESOURCE OFFICER Work Phone: [facility] 04-19-2024 14:33-0400 Body mass index (BMI) [Ratio] 29.29 kg/m2 Joselyn Arizmendi HUMAN RESOURCE OFFICER Work Phone: [facility] 04-19-2024 14:33-0400 Body temperature 97.81 [degF] Joselyn Arizmendi HUMAN RESOURCE OFFICER Work Phone: [facility] 04-19-2024 14:33-0400 Body weight 79.83 kg Joselyn Arizmendi HUMAN RESOURCE OFFICER Work Phone: [facility] 04-19-2024 14:33-0400 Diastolic blood pressure 82 mm[Hg] Joselyn Aichholz HUMAN RESOURCE OFFICER Work Phone: [facility] 04-19-2024 14:33-0400 Heart rate 82 /min Joselyn Aichholz HUMAN RESOURCE OFFICER Work Phone: [facility] 04-19-2024 14:33-0400 Respiratory rate 18 /min Joselyn Aichholz HUMAN RESOURCE OFFICER Work Phone: [facility] 04-19-2024 14:33-0400 SaO2% (BldA) [Mass fraction] 99 % Joselyn Aichholz HUMAN RESOURCE OFFICER Work Phone: [facility] 04-19-2024 14:33-0400 Systolic blood pressure 118 mm[Hg] Joselyn Aichholz HUMAN RESOURCE OFFICER Work Phone: [facility] Encounters Encounter Date Encounter Type Care Provider Facility Start: 08-07-2024 End: 08-07-2024 Refill Joselyn Aichholz HUMAN RESOURCE OFFICER Work Phone: [facility] Comment on above: Migraine without sta tus migrainosus, not intractable, unspecified migraine type (CMS/HCC) Start: 08-07-2024 End: 08-07-2024 Telephone encounter Joselyn Aichholz HUMAN RESOURCE OFFICER Work Phone: [facility] Start: 07-08-2024 End: 07-11-2024 Refill Joselyn Aichholz HUMAN RESOURCE OFFICER Work Phone: [facility] Comment on above: Insomnia Start: 07-01-2024 End: 07-01-2024 Refill Joselyn Aichholz HUMAN RESOURCE OFFICER Work Phone: [facility] Comment on above: Neck pain Start: 06-12-2024 End: 06-13-2024 Refill Joselyn Aichholz HUMAN RESOURCE OFFICER Work Phone: [facility] Comment on above: Insomnia Start: 06-05-2024 End: 06-05-2024 Refill Joselyn Aichholz HUMAN RESOURCE OFFICER Work Phone: [facility] Comment on above: Migraine without sta tus migrainosus, not intractable, unspecified migraine type (CMS/HCC) Start: 04-19-2024 End: 04-19-2024 Office outpatient visit 25 minutes Joselyn Arizmendi HUMAN RESOURCE OFFICER Work Phone: [facility] Comment on above: Migraine without sta tus migrainosus, not intractable, unspecified migraine type (CMS/HCC) (Primary Dx); Screening mammogram for breast cancer; Positive ALEJANDRINA (antinuclear antibody); Colon cancer screening Start: 04-19-2024 End: 04-19-2024 ambulatory JOSELYN KYLEIGH Not Available Start: 04-19-2024 End: 04-19-2024 Bamboo flowsheet Joselyn Arizmendi HUMAN RESOURCE OFFICER Work Phone: [facility] Start: 04-19-2024 End: 04-19-2024 Bamboo flowsheet Joselyn Arizmendi HUMAN RESOURCE OFFICER Work Phone: [facility] Start: 04-19-2024 End: 04-19-2024 Clinisync Result Encounter Joselyn Arizmendi HUMAN RESOURCE OFFICER Work Phone: [facility] Unsolicited Start: 04-04-2024 End: 04-04-2024 Orders Only Joselyn Arizmendi HUMAN RESOURCE OFFICER Work Phone: [facility] Comment on above: Positive ALEJANDRINA (antinu clear antibody) (Primary Dx) Start: 11-24-2023 End: 11-24-2023 ambulatory JOSELYN AICHHOLZ Not Available Start: 09-28-2023 Refill Joselyn Kyleigh HUMAN RESOURCE OFFICER Work Phone: [facility] Comment on above: Migraine without sta tus migrainosus, not intractable, unspecified migraine type (CMS/HCC) (Primary Dx); Migraine, unspecified, intractable, with status migrainosus (CMS/HCC) Start: 09-27-2023 Refill Joselyn Aicemelyholz HUMAN RESOURCE OFFICER Work Phone: [facility] Comment on above: Neck pain (Primary D x); Cervicalgia Start: 11-25-2022 End: 11-26-2022 ambulatory RECORDS CLERK JOSELYN SCOTEmelyKRISTIE Facility:[facility] Start: 11-05-2022 End: 11-06-2022 ambulatory CESAR JOSELYN KYLEIGH Facility:[facility] Start: 02-11-2022 End: 02-12-2022 ambulatory KIRAN JEAN Facility:[facility] Procedures Date Procedure Procedure Detail Performing Clinician Start: 04-19-2024 ALL CBC WITH AUTO DIFF Joselyn Arizmendi HUMAN RESOURCE OFFICER Work Phone: Start: 04-19-2024 TBH UA (CLEAN/CATCH) MICROSCOPIC IF INDICATE Joselyn Arizmendi HUMAN RESOURCE OFFICER Work Phone: Start: 11-25-2022 Mammography Joselyn west HUMAN RESOURCE OFFICER Work Phone: Start: 04-17-2016 Microscopic observat ion [Identifier] in Cervix by Cyto stain Joselyn Arizmendi HUMAN RESOURCE OFFICER Work Phone: Plan of Treatment Date Care Activity Detail Author Start: 07-12-2024 End: 07-12-2024 Patient encounter procedure 07/12/2024 2:20 PM EST Office Visit [facility] [address] [place] [phone] Joselyn Arizmendi NP [address] [place] [phone] [facility] Start: 05-31-2024 End: 05-31-2024 Patient encounter procedure 05/31/2024 2:20 PM EDT Office Visit [facility] [address] [place] [phone] Joselyn Arizmendi NP [address] [place] [phone] [facility] Start: 04-19-2024 End: 04-19-2024 Patient encounter procedure [facility] Comment on above: Arrived Start: 04-17-2024 Influenza vaccination Influenz a Vaccine (#1) [facility] Start: 11-26-2023 Screening for malign ant neoplasm of breast Mammogram [facility] Start: 11-03-2023 End: 11-03-2023 Patient encounter procedure 11/03/2023 2:20 PM EDT Office Visit [facility] [address] [place] [address] Kyleigh Joselyn, HUMAN RESOURCE OFFICER [address] [place] [address] [facility] Start: 04-17-2023 Influenza vaccination Influenz a Vaccine (#1) [facility] Start: 04-17-2019 Screening for malign ant neoplasm of cervix [facility] Start: 2003 Screening for malign ant neoplasm of cervix [facility] Start: 1994 Screening for malign ant neoplasm of cervix Pap Smear [facility] Start: 1973 Screening for malign ant neoplasm of colon [facility] Noninvasive colorect al cancer DNA and occult blood screening [Presence] in Stool Cologuard colon cancer screening Lab Routine Colon cancer screening Ordered: 04/19/2024 [facility] Work Phone: Comment on above: Ordered: 04/19/2024 Payers Date Payer Category Payer Private Health Insurance JAMES ANN [id number] 2022 Unknown JIM FERNANDEZ [employer] [facility] [id number] 2022-Present [phone] [place] [id number] 2022 Unknown [id number] 1973 Unknown [id number] 1973 Unknown [id number] 1973 Unknown [id number] 1973 Unknown [id number] 1973 Unknown [id number] 1973 Unknown [id number] 1959 Self-pay [id number] 1959 Unknown [id number] Social History Date Type Detail Facility Start: 07-16-2023 End: 04-19-2024 Tobacco smoking status TXIS Smokes tobacco daily [facility] History of tobacco use Cigarette Smoker [facility] Start: 07-16-2023 End: 12-16-2023 Cigarettes smoked current (pack per day) - Reported 0.5 [facility] Start: 07-16-2023 End: 12-16-2023 Tobacco use panel [facility] Start: 1975 Sex Assigned At Not on file [facility] Start: 11-24-2023 End: 04-19-2024 Tobacco use and exposure Smokeless tobacco non-user [facility] Start: 11-24-2023 End: 04-19-2024 Alcoholic beverage intake Lifetime non-drinker (finding) [facility] Do you belong to any clubs or organizations such as druze groups, unions, fraternal or athletic groups, or school groups? No [facility] Are you now , , , , never or living with a partner? [facility] How often to you hav e a drink containing alcohol? Never [facility] How many standard dr inks containing alcohol do you have on a typical day? Patient does not drink [facility] Do you feel stress - tense, restless, nervous, or anxious, or unable to sleep at night because your mind is troubled all the time - these days [OSQ] Only a little [facility] (I/We) worried [facility] er (my/our) food would run out before (I/we) got money to buy more. Never true [facility] Start: 11-24-2023 Alcohol Comment caffine: 2-3 cups da jennifer [facility] Clinical Notes 02-12-2022 to 08-07-2024 Telephone Encounter - Joselyn Arizmendi NP - 08/07/2024 10:15 AM ESTTelephone Encounter - Joselyn Arizmendi NP - 08/07/2024 10:15 AM Hilaria Arizmendi NP - 04/19/2024 4:42 PM EDT Note Date & Type Note Facility 08-07-2024 Telephone encount er Note Contact pt to see if when she took Qulpita helped with her migraines or not [place] [facility] 08-07-2024 Miscellaneous Notes Formattin g of this note might be different from the original. Contact pt to see if when she took Qulpita helped with her migraines or not [place] documented in this encounter [facility] 04-19-2024 History of Presen t illness Narrative Associated Problem(s): Migraine headache (CMS/HCC) Will trial Qlipta 60mg daily #4 samples [id number], exp 07/11, Associated Problem(s): Colon cancer screening Will resend new cologuard Associated Problem(s): Positive ALEJANDRINA (antinuclear antibody) New referral sent Associated Problem(s): Screening mammogram for breast cancer Re order mammogram Images from the original note were not included. Ramon Dubois is a 48 y.o. female presents with chief complaint of No chief complaint on file. HPI: Migraines 5-7 per month, imitrex helps Migraine This is a chronic problem. The current episode started more than 1 year ago. The problem occurs monthly. The problem has been unchanged. The pain is located in the Right unilateral region. The pain does not radiate. The pain quality is similar to prior headaches. The quality of the pain is described as aching, squeezing and stabbing. The pain is moderate. Associated symptoms include phonophobia and photophobia. Pertinent negatives include no abdominal pain, back pain, coughing, dizziness, ear pain, eye pain, eye redness, fever, nausea, seizures, sore throat or vomiting. Nothing aggravates the symptoms. She has tried NSAIDs and triptans for the symptoms. The treatment provided moderate relief. Her past medical history is significant for migraine headaches. SUBJECTIVE: MEDICATIONS: Current Outpatient Medications Medication Instructions Qulipta 60 mg, Oral, Daily SUMAtriptan (Imitrex) 100 MG tablet TAKE 1 TAB AT MIGRAINE ONSET MAY REPEAT 1 TAB IN 2HRS IF NEEDED *MAX 2/24HRS & 2X PER WK tiZANidine (ZANAFLEX) 4 mg, Oral, Every 12 hours PRN traZODone (DESYREL) 50 mg, Oral, Nightly ALLERGIES: No Known Allergies REVIEW OF SYMPTOMS: Review of Systems Constitutional: Negative for appetite change, chills and fever. HENT: Negative for congestion, ear pain and sore throat. Eyes: Positive for photophobia. Negative for pain, discharge, redness and visual disturbance. Respiratory: Negative for cough, shortness of breath and wheezing. Cardiovascular: Negative for chest pain, palpitations and leg swelling. Gastrointestinal: Negative for abdominal pain, blood in stool, constipation, diarrhea, nausea and vomiting. Genitourinary: Negative for difficulty urinating, dysuria and frequency. Musculoskeletal: Negative for arthralgias, back pain, joint swelling and myalgias. Skin: Negative for rash and wound. Neurological: Positive for headaches. Negative for dizziness, tremors, seizures and syncope. Psychiatric/Behavioral: Negative for behavioral problems, self-injury and suicidal ideas. The patient is not nervous/anxious. Hematological: Does not bruise/bleed easily. Endocrine: Negative for polydipsia, polyphagia and polyuria. Allergic/Immunologic: Negative for environmental allergies and food allergies. PAST MEDICAL HISTORY Past Medical History: Diagnosis Date Anxiety and depression ([facility]) 09/28/2023 Asymptomatic microscopic hematuria 11/03/2023 Equinus contracture of left ankle 11/03/2023 Ganglion of right hand 11/03/2023 Migraine headache ([facility]) 09/28/2023 Neck pain 09/28/2023 Positive ALEJANDRINA (antinuclear antibody) 11/03/2023 Screening mammogram for breast cancer 11/03/2023 Tobacco user 11/03/2023 WBC decreased 11/03/2023 Past Surgical History: Procedure Laterality Date CT ANGIO HEAD 02/15/2021 CT ANGIO HEAD 02/15/2021 family history includes Cancer in her maternal grandfather, maternal grandmother, and mother; Heart disease in her maternal grandfather and maternal grandmother; Hypertension in her mother; Lung cancer in her mother. OBJECTIVE: Visit Vitals BP 118/82 (BP Location: Left arm, Patient Position: Sitting, BP Cuff Size: Adult long) Pulse 82 Temp 97.8 F (Temporal) Resp 18 Ht 5' 5 Wt 176 lb SpO2 99% BMI 29.29 kg/m Smoking Status Every Day BSA 1.91 m Physical Exam Vitals and nursing note reviewed. Constitutional: General: She is not in acute distress. Appearance: Normal appearance. HENT: Head: Normocephalic and atraumatic. Right Ear: External ear normal. Left Ear: External ear normal. Nose: Nose normal. Mouth/Throat: Mouth: Mucous membranes are moist. Eyes: Extraocular Movements: Extraocular movements intact. Conjunctiva/sclera: Conjunctivae normal. Neck: Vascular: No carotid bruit. Cardiovascular: Rate and Rhythm: Normal rate and regular rhythm. Pulses: Normal pulses. Heart sounds: Normal heart sounds. Pulmonary: Effort: Pulmonary effort is normal. Breath sounds: Normal breath sounds. Abdominal: General: Bowel sounds are normal. There is no distension. Palpations: Abdomen is soft. There is no mass. Tenderness: There is no abdominal tenderness. Musculoskeletal: General: Normal range of motion. Cervical back: Normal range of motion and neck supple. Right lower leg: No edema. Left lower leg: No edema. Skin: General: Skin is warm and dry. Capillary Refill: Capillary refill takes 2 to 3 seconds. Findings: No rash. Neurological: General: No focal deficit present. Mental Status: She is alert and oriented to person, place, and time. Psychiatric: Mood and Affect: Mood normal. Behavior: Behavior normal. Thought Content: Thought content normal. Judgment: Judgment normal. ASSESSMENT AND PLAN: No follow-ups on file. Problem List Items Addressed This Visit Migraine headache (CMS/HCC) Will trial Qlipta 60mg daily #4 samples [id number], exp 07/11, Positive ALEJANDRINA (antinuclear antibody) New referral sent Relevant Orders Ambulatory referral to Rheumatology Screening mammogram for breast cancer - Primary Re order mammogram Colon cancer screening Will resend new cologuard Relevant Orders Cologuard colon cancer screening documented in this encounter [facility] [facility] 02-12-2022 Note PROCEDURE: XR FOOT L T MIN 3 VIEWS COMPARISON: None. HISTORY: Pain in left foot FINDINGS: BONES:Shave osteotomy medial head of the first metatarsal. Single screw through the distal diaphysis of the first metatarsal. No acute fracture or dislocation. Minimal degenerative changes of the midfoot with marginal osteophyte formation SOFT TISSUES:Negative. No visible soft tissue swelling. EFFUSION:None visible. OTHER: Negative. IMPRESSION: Chronic postsurgical changes to the first metatarsal head Electronically authenticated by: HAYDEE DE JESUS Date: 2022-02-12 07:21 [facility] Evaluation note Diagnosis Migraine without status migrainosus, not intractable, unspecified migraine type (CMS/HCC)- Primary Migraine, unspecified, intractable, with status migrainosus (CMS/HCC) documented in this encounter [facility] HealthcareEvaluation note* Diagnosis Neck pain- Primary Cervicalgia Cervicalgia documented [facility] encounter [facility]* Diagnosis Herpes zoster without complication- Primary Tobacco user Tobacco use disorder Screening mammogram for breast cancer Migraine without status migrainosus, not intractable, unspecified migraine type (CMS/HCC)- Primary Screening mammogram for breast cancer Positive ALEJANDRINA (antinuclear antibody) Other and unspecified nonspecific immunological findings Colon cancer screening Special screening for malignant neoplasms, colon Migraine without status migrainosus, not intractable, unspecified migraine type (CMS/HCC) [facility]* Diagnosis Herpes zoster without complication- Primary Tobacco user Tobacco use disorder Screening mammogram for breast cancer Migraine without status migrainosus, not intractable, unspecified migraine type (CMS/HCC)- Primary Screening mammogram for breast cancer Positive ALEJANDRINA (antinuclear antibody) Other and unspecified nonspecific immunological findings Colon cancer screening Special screening for malignant neoplasms, colon Insomnia Insomnia, unspecified [facility]* Diagnosis Herpes zoster without complication- Primary Tobacco user Tobacco use disorder Screening mammogram for breast cancer Migraine without status migrainosus, not intractable, unspecified migraine type (CMS/HCC)- Primary Screening mammogram for breast cancer Positive ALEJANDRINA (antinuclear antibody) Other and unspecified nonspecific immunological findings Colon cancer screening Special screening for malignant neoplasms, colon Neck pain Cervicalgia documented in [facility] encounter [facility]* Diagnosis Herpes zoster without complication- Primary Tobacco user Tobacco use disorder Screening mammogram for breast cancer Migraine without status migrainosus, not intractable, unspecified migraine type (CMS/HCC)- Primary Screening mammogram for breast cancer Positive ALEJANDRINA (antinuclear antibody) Other and unspecified nonspecific immunological findings Colon cancer screening Special screening for malignant neoplasms, colon Insomnia Insomnia, unspecified [facility]* Diagnosis Positive ALEJANDRINA (antinuclear antibody)- Primary Other and unspecified nonspecific immunological findings documented in [facility] encounter [facility]* Diagnosis Migraine without status migrainosus, not intractable, unspecified migraine type (CMS/HCC)- Primary Screening mammogram for breast cancer Positive ALEJANDRINA (antinuclear antibody) Other and unspecified nonspecific immunological findings Colon cancer screening Special screening for malignant neoplasms, colon documented in [facility]* Diagnosis Herpes zoster without complication- Primary Tobacco user Tobacco use disorder Screening mammogram for breast cancer Migraine without status migrainosus, not intractable, unspecified migraine type (CMS/HCC)- Primary Screening mammogram for breast cancer Positive ALEJANDRINA (antinuclear antibody) Other and unspecified nonspecific immunological findings Colon cancer screening Special screening for malignant neoplasms, colon Migraine without status migrainosus, not intractable, unspecified migraine type (CMS/HCC) documented in this encounter [facility] referral (narrative)* Consultation (Routine) - Pending Review Specialty Diagnoses / Procedures Referred By Contac t Referred To Contact Rheumatology Diagnoses Positive ALEJANDRINA (antinuclear antibody) Procedures DC OFFICE/OUTPATIENT NEW HIGH MDM 60 MINUTES Joselyn Arizmendi NP [address] [place] [address] Stas Harding MD Critical [facility] hospital [facility] [address] [place] [address] Referral ID Status Reason Start Date Expiration Date Visits Requested Visits Authorized [id number] Pending Review Specialty Services Required 04/04/2024 10/01/2024 1 1 [facility] (narrative)* Consultation (Routine) - Pending Review Specialty Diagnoses / Procedures Referred By Contac t Referred To Contact Rheumatology Diagnoses Positive ALEJANDRINA (antinuclear antibody) Procedures DC OFFICE/OUTPATIENT NEW HIGH MDM 60 MINUTES Joselyn Arizmendi NP [address] [place] [address] Stas Harding MD [address] [place] [address] [address] [place] [address] Referral ID Status Reason Start Date Expiration Date Visits Requested Visits Authorized [id number] Pending Review Specialty Services Required 04/19/2024 10/16/2024 1 1 [facility] Healthcare Summary Purpose Family History No Family History Records FoundNo Family History Records FoundNo Family History Records Found Advance Directives No Advanced Directives Records FoundNo Advanced Directives Records FoundNo Advanced Directives Records Found Additional Source Comments INFORMATION SOURCE (unrecogn ized section and content) DATE CREATED AUTHOR 02/17/2021 [facility] DATE CREATED AUTHOR AUTHOR'S ORGANIZ ATION 11/30/2022 [facility] DATE CREATED AUTHOR AUTHOR'S ORGANIZ ATION 04/20/2024 [facility] EPIC Reason for Visit (unrecogniz ed section and content) Reason Comments Med Refill Care Teams (unrecognized sec tion and content) Stone 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 Preparer Apprentice Relationship Specialty Start Date End Date Michael Tellez MD [address] [place] [address] PCP - General Family Medicine 09/22/23 Joselyn Arizmendi NP [address] [place] [address] Referring Physician Nurse Practitioner 03/03/23 Stone 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 Plate Preparer Apprentice Relationship Specialty Start Date End Date Michael Tellez MD [address] [place] [address] PCP - General Family Medicine 09/22/23 Joselyn Arizmendi NP [address] [place] [address] Referring Physician Nurse Practitioner 03/03/23 Stone And Plate Preparer Apprentice Relationship Specialty Start Date End Date Michael Tellez MD [address] [place] [address] PCP - General Family Medicine 09/22/23 Joselyn Arizmendi NP [address] [place] [address] Referring Physician Nurse Practitioner 03/03/23 Stone And Plate Preparer Apprentice Relationship Specialty Start Date End Date Michael Tellez MD [address] [place] [address] PCP - General Family Medicine 09/22/23 Joselyn Arizmendi NP [address] [place] [address] Referring Physician Nurse Practitioner 03/03/23 Stone And Plate Preparer Apprentice Relationship Specialty Start Date End Date Michael Tellez MD [address] [place] [address] PCP - General Family Medicine 09/22/23 Joselyn Arizmendi NP [address] [place] [address] Referring Physician Nurse Practitioner 03/03/23 Stone And Plate Preparer Apprentice Relationship Specialty Start Date End Date Michael Tellez MD [address] [place] [address] PCP - General Family Medicine 09/22/23 Joselyn Arizmendi NP [address] [place] [address] Referring Physician Nurse Practitioner 03/03/23 Stone And Plate Preparer Apprentice Relationship Specialty Start Date End Date Michael Tellez MD [address] [place] [address] PCP - General Family Medicine 09/22/23 Joselyn Arizmendi NP [address] [place] [address] Referring Physician Nurse Practitioner 03/03/23 Stone And Plate Preparer Apprentice Relationship Specialty Start Date End Date Michael Tellez MD [address] [place] [address] PCP - General Family Medicine 09/22/23 Joselyn Arizmendi NP [address] [place] [address] Referring Physician Nurse Practitioner 03/03/23 FOR RECORDS PERTAINING TO PATIENTS WHO ARE OR HAVE BEEN ENROLLED IN A CHEMICAL DEPENDENCY/SUBSTANCEABUSE PROGRAM, SOME INFORMATION MAY BE OMITTED. This clinical summary was aggregated from multiple sources. Caution should be exercised in using it in the provision of clinical care. This summary normalizes information from multiple sources, and as a consequence, information in this document may materially change the coding, format and clinical context of patient data. In addition, data may be omitted in some cases. CLINICAL DECISIONS SHOULD BE BASED ON THE PRIMARY CLINICAL RECORDS. [facility] [employer] [facility]. provides no warranty or guarantee of the accuracy or completeness of information in this document.
[2024-10-24] MEDS: 0.9 % SODIUM CHLORIDE 1,000 ML 1000 ML IV (16:29)
[2024-10-24] MEDS: ONDANSETRON PF 4 MG/2 ML VIAL IV (16:30)
[2024-10-24] MEDS: ACETAMINOPHEN 325 MG TABLET 650 MG PO (16:31)
[2024-10-24] MEDS: MORPHINE SULFATE 4 MG/ML VIAL IV (16:32)
[2024-10-24 16:46] LABS: Hematocrit 39.7 % (36.0-48.0); Hemoglobin 13.5 g/dL (12.0-16.0); Mean Corpuscular Hemoglobin 31.5 pg (26.7-34.0); Mean Corpuscular Volume 92.5 fL (81.0-99.0); Mean Platelet Volume 9.6 fL (9.5-13.5); Platelet Count 247 10^3/uL (150-450); Red Blood Count 4.29 10^6/uL (4.20-5.40); Red Cell Distribution Width 13.1 % (11.0-15.0); White Blood Count 1.5 10^3/uL (4.0-11.0)
[2024-10-24 16:52] VITALS: O2SAT 98
[2024-10-24 17:06] LABS: Influenza Virus A Antigen Negative; Influenza Virus B Antigen Negative; Internal Control Within Normal Limits; SARS-CoV-2 Ag NEGATIVE (NEGATIVE)
[2024-10-24 17:12] LABS: Lymphocytes Absolute Manual 0.27 10^3/uL (1.20-3.80); Monocytes Absolute Manual 0.06 10^3/uL (0.30-0.80); Segmented Neut Absolute Manual 1.17 10^3/uL (1.4-6.5)
[2024-10-24 17:34] LABS: BUN Creatinine Ratio 15.5; Calcium 7.9 mg/dL (8.5-10.1); Carbon Dioxide 24.3 mmol/L (21.0-32.0); Chloride 106 mmol/L (98-107); Estimated GFR (African America >60 (>=60 mL/min/1.73m^2); Estimated GFR (Non-African Ame >60 (>=60 mL/min/1.73m^2); Glucose 107 mg/dL (74-106); Potassium 3.3 mmol/L (3.5-5.1); Sodium 139 mmol/L (136-145)
[2024-10-24 17:42] VITALS: PULSE 99; TEMP 37.2; O2SAT 97
[2024-10-24 17:59] VITALS: PULSE 92; O2SAT 98
== END 2024-10-24 18:01 | disposition home or self-care (01) ==
PROVIDERS: Emergency Provider Emergency Medicine; PCP Nurse Practitioner
DX: B34.9 Viral infection, unspecified (principal); D72.819 Decreased white blood cell count, unspecified; R50.9 Fever, unspecified
CPT/HCPCS: 36415; 80048; 85007; 85027; 87804; 87811; 96374; 96375; 99285; J2270; J2405

== ENCOUNTER 2025-02-08 13:57 | Outpatient (OUT) | payer OTHER, SELFPAY ==
--- OUTSIDE RECORDS SUMMARY | 2025-02-08 14:00 | XMS_ITS | Encounter Summary ---
Demographics Address [address] [place] [address] Home Phone Mobile Phone Email Address Email Address Preferred Language en Marital Status Yarsani Affiliation Unknown Race Ethnic Group Unknown Author Organization [facility] Address [address] [place] [address] Care Team Providers Care Shredding Machine Tender Name Role Phone Joselyn Arizmendi PATTERN MAKER Unavailable [phone] Michael Tellez MD Primary Care Provider [phone] Reason for Visit * Reason Comments Med Refill Encounter Details Date Type Department Care Team (Late st Contact Info) Description 02/02/2025 Refill [facility] [address] [place] [address] Joselyn Arizmendi NP [address] [place] [address] Neck pain Social History Tobacco Use Types Packs/Day Years Used Date Smoking Tobacco: Every Day Cigarettes Smokeless Tobacco: Never Alcohol Use Standard Drinks/Week Comments Never 0 (1 standard drink = 0.6 oz pur e alcohol) caffine: 2-3 cups daily Social Connection and Isolat ion Panel [NHANES] Answer Date Recorded In a typical week, how many times do you talk on the phone with family, friends, or neighbors? More than three times a week 12/16/2023 How often do you get togethe r with friends or relatives? Twice a week 12/16/2023 How often do you attend chur ch or catholic services? More than 4 times per year 12/16/2023 Do you belong to any clubs o r organizations such as voodoo groups, unions, fraternal or athletic groups, or school groups? No 12/16/2023 How often do you attend meet ings of the clubs or organizations you belong to? Never 12/16/2023 Are you , , di vorced, , never , or living with a partner? 12/16/2023 AUDIT-C Answer Date Recorded Q1: How often do you have a drink containing alcohol? Never 12/16/2023 Q2: How many drinks containi ng alcohol do you have on a typical day when you are drinking? Patient does not drink Q3: How often do you have si x or more drinks on one occasion? Never 12/16/2023 Overall Financial Resource Strain (CARDIA) Answe r Date Recorded How hard is it for you to pa y for the very basics like food, housing, medical care, and heating? Not hard at all 12/16/2023 PHQ-2 Answer Date Recorded Patient Health Questionnaire-2 Score 0 11/24/2023 [facility] - Occupational Stress Questionnaire Answer Date Recorded Do you feel stress - tense, restless, nervous, or anxious, or unable to sleep at night because your mind is troubled all the time - these days? Only a little 12/16/2023 Exercise Vital Sign Answer Date Recorde d On average, how many days pe r week do you engage in moderate to strenuous exercise (like a brisk walk)? 5 days 12/16/2023 On average, how many minutes do you engage in exercise at this level? 60 min 12/16/2023 Hunger Vital Sign Answer Date Recorded Within the past 12 months, y ou worried that your food would run out before you got the money to buy more. Never true 12/16/19 24 Within the past 12 months, t he food you bought just didn't last and you didn't have money to get more. Never true 12/16/2023 PRAPARE - Transportation Answer Date Re corded In the past 12 months, has l ack of transportation kept you from medical appointments or from getting medications? No 08/2023 In the past 12 months, has l ack of transportation kept you from meetings, work, or from getting things needed for daily living? No 12/16/2023 Housing Stability Vital Sign Answer Joseph e Recorded In the last 12 months, was t here a time when you were not able to pay the mortgage or rent on time? No 12/16/2023 Number of Places Lived in the Last Year Not on f ile 12/16/2023 In the last 12 months, was t here a time when you did not have a steady place to sleep or slept in a residential (including now)? No 12/16/2023 Comments Unknown Sex and Gender Information Value Date Recorded Sex Assigned at Not on file Legal Sex Female 8:14 PM EDT Gender Identity Not on file Sexual Orientation Not on file documented as of this encounter Plan of Treatment Upcoming Encounters Date Type Department Care Team (Late st Contact Info) Description 04/10/2025 5:30 PM EDT Office Visit [facility] [address] [place] [phone] Joselyn Arizmendi NP [address] [place] [address] documented as of this encounter Visit Diagnoses Diagnosis Neck pain Cervicalgia documented in this encounter Care Teams Shredding Machine Tender Relationship Specialty Start Date End Date Michael Tellez MD [address] [place] [address] PCP - General Family Medicine 09/22/23 Joselyn Arizmendi NP [address] [place] [address] Referring Physician Nurse Practitioner 03/03/23 documented as of this encounter
--- OUTSIDE RECORDS SUMMARY | 2025-02-08 14:00 | XMS_ITS | Encounter Summary ---
Demographics Address [address] [place] [address] Home Phone Mobile Phone Email Address Email Address Preferred Language en Marital Status Yazdanism Affiliation Unknown Race Ethnic Group Unknown Author Organization [facility] Address [address] [place] [address] Care Team Providers Care It Application Support Analyst Name Role Phone Joselyn Arizmendi HELMET COVERER Unavailable [phone] Michael Tellez MD Primary Care Provider [phone] Reason for Visit * Reason Comments Med Refill Encounter Details Date Type Department Care Team (Late st Contact Info) Description 03/25/2024 Refill [facility] [address] [place] [address] Joselyn Arizmendi NP [address] [place] [address] Neck pain Social History Tobacco Use Types [...] often do you attend chur ch or roman catholic services? More than 4 times per year 12/16/2023 Do you belong to any clubs o r organizations such as hinduism groups, unions, fraternal or athletic groups, or [...] Recorded Patient Health Questionnaire-2 Score 0 11/24/2023 [facility] of Occupat ional Health - Occupational Stress [...] on file documented as of this encounter Miscellaneous Notes * Telephone Encounter - Joselyn Arizmendi NP - 03/27/2024 8:36 PM EDT Please call and schedule an appt for the pt please. She has cancelled the last several, I need her schedule and keep her appts [place] documented in this encounter Plan of Treatment Upcoming Encounters Date Type Department Care Team (Late st Contact Info) Description 04/10/2025 5:30 PM EDT Office Visit [facility] [address] [place] [address] Joselyn Arizmendi NP [address] [place] [address] documented as of this encounter Visit Diagnoses Diagnosis Neck pain Cervicalgia documented in this encounter Care Teams It Application Support Analyst Relationship Specialty Start Date End Date Michael Tellez MD [address] [place] [phone] PCP - General Family Medicine 09/22/23 Joselyn Arizmendi NP [address] [place] [phone] Referring Physician Nurse Practitioner 03/03/23 documented as of this encounter
--- OUTSIDE RECORDS SUMMARY | 2025-02-08 14:00 | XMS_ITS | Clinical Summary ---
Demographics Address [address] [place] [address] Home Phone Mobile Phone Email Address Email Address Preferred Language en Marital Status Shinto Affiliation Unknown Race Ethnic Group Unknown Author Organization [facility] Address [address] [place] [address] Care Team Providers Care Business Objects Developer Name Role Phone Joselyn Arizmendi NP Unavailable [phone] Michael Tellez MD Primary Care Provider [phone] Allergies No known active allergies Medications traZODone (Desyrel) 50 MG tabletIndicatio ns:Insomnia Take 1 tablet (50 mg) by mouth at bedtime 90 tablet 11/08/19 25 Active SUMAtriptan (Imitrex) 100 MG tabletIndicatio ns:Migraine without status migrainosus, not intractable, unspecified migraine type TAKE 1 TAB AT MIGRAINE ONSET MAY REPEAT 1 TAB IN 2HRS IF NEEDED *MAX 2/24HRS & 2X PER WK 9 tablet 12/23/19 25 Active tiZANidine (Zanaflex) 4 MG tabletIndicatio ns:Neck pain Take 1 tablet (4 mg) by mouth every 12 (twelve) hours if needed for muscle spasms 180 tablet 02/03/20 25 025 Active tiZANidine (Zanaflex) 4 MG tabletIndicatio ns:Neck pain Take 1 tablet (4 mg) by mouth every 12 (twelve) hours if needed for muscle spasms 180 tablet 11/08/19 25 025 Discontinued Active Problems Problem Noted Date Diagnosed Date Neck pain on left side 01/04/2025 Assessment & Plan (01/04/2025 6:10 PM EDT): No obvious mass, no appreciable adenopathy, however very tender Will or CT neck w contrast Colon cancer screening 04/19/2024 Assessment & Plan (01/04/2025 7:25 AM EDT): Ordered cologuard test, still not completed Assessment & Plan (04/19/2024 4:41 PM EDT): Will resend new cologuard Obesity (BMI 30-39.9) 11/26/2023 Assessment & Plan (01/04/2025 7:24 AM EDT): Discussed with patient their BMI (actual, verses recommended). We have also discussed lifestyle modifications: attempts to perform physical activity as chronic conditions allow, also to monitor dietary intake: increasing protein/fruits/veggies and lowering carb intake (unless contraindicated). Limit sodas, juices, and sugary drinks. Herpes zoster without complication 11/24/2023 Assessment & Plan (11/24/2023 3:21 PM EDT): While there is no rash to suggest zoster, her symptoms appear to be classic presentation I am going to proactively treat with anti viral I have advised of my diagnosis, how to treat, who to avoid Fu in 3 weeks Asymptomatic microscopic hematuria 11/03/2023 Ganglion of right hand 11/03/2023 WBC decreased 11/03/2023 Positive ALEJANDRINA (antinuclear antibody) 11/03/2023 Assessment & Plan (01/04/2025 6:10 PM EDT): New referral sent 3rd time Assessment & Plan (04/19/2024 4:41 PM EDT): New referral sent Tobacco user 11/03/2023 Assessment & Plan (01/04/2025 7:23 AM EDT): The patient has been advised of the risks of continued smoking: stroke, MS, all forms of cancer, lung disease, and . Options for quitting smoking include: cold turkey, hypnosis, acupuncture, nicotine replacement meds (gum, lozenges, and patches), Buproprion, and Varenicline. At this time pt is encouraged to evaluate their goals for wanting to quit smoking, and reach out to provider when ready to start this process Screening mammogram for breast cancer 11/03/2023 Assessment & Plan (04/19/2024 4:37 PM EDT): Re order mammogram Migraine headache 09/28/2023 Overview (11/03/2023): MRI brain empty pituitary fossa, pituitary atrophy vs arachnoid cyst: dr stauffer 03/30/2018 Assessment & Plan (01/04/2025 6:11 PM EDT): Current meds: imitrex, has also been given some samples of qulipta in the past, did not like the qulipta Will continue with imitrex Assessment & Plan (04/19/2024 4:42 PM EDT): Will trial Qlipta 60mg daily #4 samples [id number], exp 07/11, Anxiety and depression 09/28/2023 Neck pain 09/28/2023 Bilateral occipital neuralgia 01/22/2021 Resolved Problems Problem Noted Date Diagnosed Date Resolved Date Equinus contracture of left ankle 11/03/2023 11/03/2023 Encounters Date Type Department Care Team Description 02/02/2025 Refill [facility] [address] [place] [address] Joselyn Arizmendi NP Neck pain 01/23/2025 Abstract [facility] [address] [place] [address] Joselyn Arizmendi VERMIN EXTERMINATOR 01/23/2025 Orders Only [facility] [address] [place] [phone] Joselyn Arizmendi NP Neck pain on left side (Primary Dx) 01/04/2025 2:20 PM EDT Office Visit [facility] [address] [place] [address] Joselyn Arizmendi NP Migraine without status migrainosus, not intractable, unspecified migraine type (Primary Dx); Tobacco user; Obesity (BMI 30-39.9); Colon cancer screening; Screening mammogram for breast cancer; Neck pain on left side; Positive ALEJANDRINA (antinuclear antibody) 01/04/2025 Travel 12/22/2024 Refill [facility] [address] [place] [address] Joselyn Arizmendi NP Migraine without status migrainosus, not intractable, unspecified migraine type from Last 3 Months Family History Medical History Relation Name Comments Cancer Maternal Grandfather Heart disease Maternal Grandfather Cancer Maternal Grandmother Heart disease Maternal Grandmother Cancer Mother Hypertension Mother Lung cancer Mother Relation Name Status Comments Maternal Grandfather Maternal Grandmother Mother Social History Tobacco Use Types Packs/Day Years Used Date Smoking Tobacco: Every Day Cigarettes Smokeless Tobacco: Never Tobacco Cessation:Ready to Q uit: Not Asked; Counseling Given: Not Answered Alcohol Use Standard Drinks/Week Comments Never 0 [...] 12/16/2023 How often do you attend chur or shinto services? More than 4 times per year 12/16/2023 Do you belong to any clubs o r organizations such as uatsdin groups, unions, fraternal or athletic groups, or [...] Recorded Patient Health Questionnaire-2 Score 0 11/24/2023 [facility] - [facility]ational Stress Questionnaire Answer Date Recorded [...] on file Sexual Orientation Not on file Last Filed Vital Signs Vital Sign Reading Time Taken Comments Blood Pressure 108/80 01/04/2025 2:12 PM EDT Pulse 86 01/04/2025 2:12 PM EDT Temperature 36.9 C (98.5 F) 01/04/2025 2:12 PM EDT Respiratory Rate 18 01/04/2025 2:12 PM EDT Oxygen Saturation 98% 01/04/2025 2:12 PM EDT Inhaled Oxygen Concentration - - Weight 82.9 kg (182 lb 12.8 oz) 01/04/2025 2:12 PM EDT Height 165.1 cm (5' 5 ) 04/19/2024 2:33 PM EDT Body Mass Index 30.42 04/19/2024 2:33 PM EDT Plan of Treatment Upcoming Encounters Date Type Department Care Team (Late st Contact Info) Description 04/10/2025 5:30 PM EDT Office Visit [facility] [address] [place] [address] Joselyn Arizmendi NP [address] [place] [address] Health Maintenance Due Date Last Done Comments CT Colonography 1973 Colonoscopy 1973 Colorectal Cancer Screening 1973 FIT-DNA 1973 FIT 1973 FOBT 1973 Sigmoidoscopy 1973 HPV/Cotest 2003 Cervical Cancer Screening 04/17/2019 Pap Smear 04/17/2019 04/17/2016 Mammogram 11/26/2023 11/25/2022 Influenza Vaccine Discontinued Insurance * Guarantor: Ramon Melgar Account Type Relation to Patient Date of Phone Billing Address Personal/Family Self 1975 [address] [place] [address] JIM ANN Care Teams Business Objects Developer Relationship Specialty Start Date End Date Michael Tellez MD [address] [place] [address] PCP - General Family Medicine 09/22/23 Joselyn Arizmendi NP [address] [place] [address] Referring Physician Nurse Practitioner 03/03/23
--- OUTSIDE RECORDS SUMMARY | 2025-02-08 14:00 | XMS_ITS | Encounter Summary ---
Demographics Address [address] [place] [address] Home Phone Mobile Phone Email Address Email Address Preferred Language en Marital Status Jewish Affiliation Unknown Race Ethnic Group Unknown Author Organization [facility] Address [address] [place] [address] Care Team Providers Care Order Fulfillment Specialist Name Role Phone Joselyn Arizmendi GIFTS OFFICER Unavailable [phone] Michael Tellez MD Primary Care Provider [phone] Encounter Details Date Type Department Care Team (Late st Contact Info) Description 01/23/2025 Abstract [facility] [address] [place] [address] Joselyn Arizmendi NP [address] [place] [id number] Social History Tobacco Use Types Packs/Day Years [...] often do you attend chur ch or shinto services? More than 4 times per year 12/16/2023 Do you belong to any clubs o r organizations such as yazidi groups, unions, fraternal or athletic groups, or [...] Recorded Patient Health Questionnaire-2 Score 0 11/24/2023 [facility] - [...] place to sleep or slept in a detention (including now)? No 12/16/2023 Comments Unknown Sex [...] Office Visit [facility] [address] [place] [address] Joselyn Arizmendi NP [address] [place] [phone] documented as of this encounter Visit Diagnoses Not on filedocumented in this encounter Care Teams Order Fulfillment Specialist Relationship Specialty Start Date End Date Micahel Tellez MD [address] [place] [phone] PCP - General Family Medicine 09/22/23 Joselyn Arizmendi NP [address] [place] [phone] Referring Physician Nurse Practitioner 03/03/23 documented as of this encounter
--- OUTSIDE RECORDS SUMMARY | 2025-02-08 14:00 | XMS_ITS | Clinical Summary ---
Demographics Address [facility] [address] [place] [address] Mobile Phone Home Phone Phone Email Address Preferred Language ENG Marital Status Yazdanism Affiliation Unknown Race or O ther Ethnic Group Not or Lati no Author Organization [facility] Address [facility] [place] [address] Care Team Providers Care Lifeguard Name Role Phone Unavailable Primary Care Provider Unavailabl e Medications hydrOXYzine pamoate (VISTARIL) 50 mg capsule TAKE 1 CAPSULE BY MOUTH 4 TIMES A DAY NEEDED FOR ANXIETY 1 Active naratriptan (AMERGE) 2.5 mg tablet Take 1 tablet by mouth as needed for Migraine Headache (see administration instructions). TAKE ONE(1) TABLET AT THE ONSET OF HEADACHE; IF HEADACHE RETURNS OR DOES NOT FULLY RESOLVE, THE DOSE MAY BE REPEATED AFTER 4 HOURS; DO NOT EXCEED FIVE(5) MG IN 24 HOURS. 9 tablet 3 1 Active SUMAtriptan (IMITREX) 100 mg tablet Take 1 tab at migraine onset. May repeat once in 2 hours if needed. 9 tablet 11 1 Active Active Problems Problem Noted Date Diagnosed Date Bilateral occipital neuralgia 01/22/2021 Intractable chronic migraine without aura and with status migrainosus 01/22/2021 Chronic migraine without aur a, with intractable migraine, so stated, with status migrainosus 01/22/2021 Chronic daily headache 01/22/2021 Family history of ischemic h eart disease and other diseases of the circulatory system 01/22/2021 Social History Tobacco Use Types Packs/Day Years Used Date Smoking Tobacco: Every Day Smokeless Tobacco: Never Area Deprivation Index Answer Date Og rded National Score (1-100), lower number is lower ri sk Not on file 01/22/2021 State Score (1-10), lower number is lower risk N ot on file 01/22/2021 Data from: https://www.neighborhoodatlas.medicine.[facility]/. Last address used for calculation Not on file 01/22/2021 Comments No Sex and Gender Information Value Date Recorded Sex Assigned at Female 02/13/2021 11:04 PM EDT Legal Sex Female 11:40 AM EDT Gender Identity Female 02/13/2021 11:04 PM EDT Sexual Orientation Straight 02/13/2021 11 :04 PM EDT Last Filed Vital Signs Vital Sign Reading Time Taken Comments Blood Pressure 124/81 01/22/2021 2:41 PM EDT Pulse 88 01/22/2021 2:41 PM EDT Temperature - - Respiratory Rate - - Oxygen Saturation - - Inhaled Oxygen Concentration - - Weight 85.3 kg (188 lb 0.8 oz) 01/22/2021 2:41 P M EDT Height 165.1 cm (5' 5 ) 01/22/2021 2:41 PM EDT Body Mass Index 31.29 01/22/2021 2:41 PM EDT Plan of Treatment Health Maintenance Due Date Last Done Comments Anxiety Screening 1991 Depression Screening 1991 HIV Screening 1991 Hepatitis C Screening 1991 DTaP,Tdap,Td Vaccine (1 - Tdap) 1992 Hepatitis B Vaccine (1 of 3 - 19+ 3-dose series) 1992 Cervical Cancer Screening [address] M[address] Colonography 2018 Cologuard (FIT-DNA) 2018 Colonoscopy 2018 Colorectal Cancer Screening 2018 Diabetes Screening 2018 Fecal Occult Blood 2018 Lipid Screening 2018 Sigmoidoscopy 2018 Pneumococcal Vaccine: 50+ (1 of 1 - PCV) 2023 Shingrix Vaccine (1 of 2) 2023 Covid-19 Vaccine (3 - season) 04/17/202410/2020, 08/29/2020 Influenza Vaccine (Season Ended) 2025 Insurance * Guarantor: Ramon Melgar Account Type Relation to Patient Date of Phone Billing Address Personal/Family Self 1975 [address] [place] [address] BLUE ACCESS PPO
--- NOTE | 2025-02-08 14:01 | US_ITS ---
[address] [address] Patient Name: MER DUBOIS MRN: [id number] date: 1975 Sex: F Assigned Patient Location: [place] Current Patient Location: Accession/Order Number: [id number] Exam Date: 02/08/2025 16:14 Report Date: 02/08/2025 16:16 At the request of: BAR NEAL NP Procedure: US soft tissue head and neck US soft tissue head and neck 02/08/2025 2:21 PM SIGNS AND SYMPTOMS: ^Neck Pain /lump On Left Side PROTOCOL: Grayscale and color sonographic images were obtained in the region of palpable abnormality in the left side of the neck. COMPARISON: None FINDINGS: In the region of palpable abnormality there is a benign-appearing lymph node measuring 1.7 x 0.9 x 0.6 cm in greatest dimension. There is no evidence of mass. No fluid collection. No significant hyperemia. US/US soft tissue head and neck IMPRESSION: In the region of palpable abnormality there is a benign-appearing lymph node measuring 1.7 x 0.9 x 0.6 cm in greatest dimension. Impression dictated by: Sunday Pritchard M.D. 02/08/2025 4:16 PM Dictation Location: [place] [address] Electronically authenticated by: [id number] Date: 02/08/2025 16:16
== END 2025-02-08 13:58 | disposition home or self-care (01) ==
LOC: US 13:57
PROVIDERS: PCP Nurse Practitioner; Visit Provider Nurse Practitioner
DX: M54.2 Cervicalgia (principal)
CPT/HCPCS: 76536

== ENCOUNTER 2025-02-14 20:35 | Emergency (ER) | payer OTHER, SELFPAY ==
[2025-02-14 20:38] VITALS: BP 151/88; PULSE 94; TEMP 36.6; O2SAT 100
--- OUTSIDE RECORDS SUMMARY | 2025-02-14 20:43 | XMS_ITS | CCD ---
Demographics Address [address] [place] [id number] Home Phone Mobile Phone Preferred Language en Marital Status Advent Affiliation Unknown Race Unknown Ethnic Group Unknown Author Organization [facility] Care Team Providers Care Online Facilitator Name Role Phone AICHHOLZ, STUDENT SPECIALIST JOSELYN Admitting Unavailable AICHHOLZ, STUDENT SPECIALIST JOSELYN Attending Unavailable AICHHOLZ, STUDENT SPECIALIST JOSEYLN Primary Care Unavailable AICHHOLZ, STUDENT SPECIALIST JOSELYN Consulting Unavailable Reuben Vergara Consulting Unavailable AICHHOLZ, STUDENT SPECIALIST JOSELYN Admitting Unavailable AICHHOLZ, STUDENT SPECIALIST JOSELYN Attending Unavailable AICHHOLZ, STUDENT SPECIALIST JOSELYN Primary Care Unavailable AICHHOLZ, STUDENT SPECIALIST JOSELYN Consulting Unavailable KIRAN JEAN Admitting Unavailable KIRAN JEAN Attending Unavailable AICHHOLZ, STUDENT SPECIALIST JOSELYN Primary Care Unavailable DR HAYDEE DE JESUS V Consulting Unavailable KIRAN JEAN Consulting Unavailable AICHHOLZ, STUDENT SPECIALIST JOSELYN Admitting Unavailable AICHHOLZ, STUDENT SPECIALIST JOSELYN Attending Unavailable AICHHOLZ, STUDENT SPECIALIST JOSELYN Primary Care Unavailable Aichholz ORTHOTIC FITTER, Joselyn Unavailable Michael Tellez MD Primary Care Provider Aichholz ORTHOTIC FITTER, Joselyn Unavailable AICHHOLZ, JOSELYN Attending Unavailable AICHHOLZ, JOSELYN Attending Unavailable Medications Current Medications Medication Drug Class(es) Dates Sig (Normalized) Sig (Original) amitriptyline hydrochloride 10 mg oral tablet (2 sources) Tricyclic Antidepressant take 1 tablet by mouth at bedtime amitriptyline (Elavil) 10 MG tablet Take 10 mg by mouth at bedtime 0 Active SUMAtriptan 100 mg oral tablet (20 sources) Serotonin-1b and Serotonin-1d Receptor Agonist Start: 03-27-2024 End: 12-22-2024 SUMAtriptan (Imitrex) 100 MG tablet Indications: Migraine without status migrainosus, not intractable, unspecified migraine type TAKE 1 TAB AT MIGRAINE ONSET MAY REPEAT 1 TAB IN 2HRS IF NEEDED *MAX 2/24HRS & 2X PER WK 9 tablet 12/22/2024 Active Start: 09-28-2023 SUMAtriptan (I mitrex) 100 MG [...] 09/28/2023 Discontinued tiZANidine 4 mg oral tablet (20 sources) Central alpha-2 Adrenergic Agonist Start: 11-07-2024 End: 05-03-2025 take 1 tablet by mouth once tiZANidine (Zanaflex) 4 MG tablet Indications: Neck pain Take 1 tablet (4 mg) by mouth every 12 (twelve) hours if needed for muscle spasms 180 tablet 02/02/2025 05/03/2025 Active Start: 03-27-2024 End: 09-29-2024 take 1 tablet [...] 09/28/2023 10/28/2023 Active take 1 capsule by [facility] twice daily as needed for muscle spasms tiZANidine (Zanaflex) 4 MG capsule Take 4 mg by mouth 2 (two) times a day as needed for muscle spasms 0 Active traZODone hydrochloride 50 mg oral tablet (20 sources) Serotonin Reuptake Inhibitor Start: 11-07-2024 End: 02-05-2025 take 1 tablet by mouth at bedtime traZODone (Desyrel) 50 MG tablet Indications: Insomnia Take 1 tablet (50 mg) by mouth at bedtime 90 tablet 11/07/2024 Active Start: 06-13-2024 End: 10-09-2024 take 1 tablet by mouth at bedtime traZODone (Desyrel) 50 MG tablet Indications: Insomnia Take 1 tablet (50 mg) by mouth at bedtime 90 tablet 07/11/2024 10/09/2024 Active Start: 12-23-2023 take 1 tablet by doroteo th at bedtime traZODone (Desyrel) 50 MG tablet [...] Drug Class(es) Dates Sig (Normalized) Sig (Original) Atogepant (Qulipta) 60 MG tablet (13 sources) End: 01-04-2025 take 1 tablet by mouth once daily Atogepant (Qulipta) 60 MG tablet Take 60 mg by mouth Daily 01/04/2025 Discontinued (Therapy completed) take 1 tablet by mouth once telma y Atogepant (Qulipta) 60 MG tablet Take 60 mg by mouth Daily Active etodolac 400 mg oral tablet (4 sources) Nonsteroidal Anti-inflammatory Drug Start: 12-08-2023 End: 04-19-2024 take 1 tablet by mouth twice daily as needed etodolac (Lodine) 400 MG tablet Take 400 mg by mouth 2 (two) times a day as needed 12/08/2023 04/19/2024 Discontinued (Therapy completed) Problems Active Problems Problem Classification Problem Date Documented Da te Episodic/Chronic Anxiety disorders (20 sources) Mixed anxiety and depressive disorder; Translations: [Anxiety disorder, unspecified] Onset: 09-28-2023 09-28-2023 Chronic Diseases of white blood cells (19 sources) Leukopenia; Translations: [Decreased white blood cell count, unspecified] Onset: 11-03-2023 11-03-2023 Chronic Headache; including migraine (20 sources) Refractory migraine; Translations: [Migraine, unspecified, intractable, with status migrainosus] Onset: 09-28-2023 09-28-2023 Chronic Other nutritional; endocrine; and metabolic disorders (20 sources) Body mass index 30+ - obesity; Translations: [Obesity, unspecified] Onset: 11-26-2023 11-26-2023 Chronic Residual codes; unclassified (4 sources) Other specified health status; Translations: [OTHER SPECIFIED HEALTH STATUS] Onset: 11-05-2022 Episodic Residual codes; unclassified (3 sources) Insomnia; Translations: [Insomnia, unspecified] 06-12-2024 Episodic Spondylosis; intervertebral disc disorders; other back problems (20 sources) Neck pain; Translations: [Cervicalgia] Onset: 01-22-2021 09-27-2023 Episodic Past or Other Problems Problem Classification Problem Date Documented Date Episodic/Chronic Genitourinary symptoms and ill-defined conditions (19 sources) Asymptomatic microscopic hematuria; Translations: [Asymptomatic microscopic hematuria] Onset: 11-03-2023 11-03-2023 Episodic Immunizations and screening for infectious disease (20 sources) Anti-nuclear factor positive; Translations: [Other specified abnormal immunological findings in serum] Onset: 11-03-2023 11-03-2023 Episodic Other acquired deformities (19 sources) Equinus contracture of the ankle; Translations: [Contracture, left ankle] Onset: 11-03-2023 Resolved: 11-03-2023 11-03-2023 Chronic Other connective tissue disease (4 sources) Pain in left foot; Translations: [PAIN IN LEFT FOOT] Onset: 02-11-2022 Episodic Other connective tissue disease (19 sources) Ganglion cyst of right hand; Translations: [Ganglion, right hand] Onset: 11-03-2023 11-03-2023 Episodic Other screening for suspected conditions (not mental disorders or infectious disease) (20 sources) Encounter for screening mammogram for malignant neoplasm of breast; Translations: [Patient encounter status] Onset: 11-25-2022 Episodic Residual codes; unclassified (20 sources) Tobacco user; Translations: [Tobacco use] Onset: 11-03-2023 11-03-2023 Episodic Viral infection (19 sources) Herpes zoster without complication; Translations: [Zoster without complications] Onset: 11-24-2023 11-24-2023 Episodic Results Test Name Value Interpretation Reference Range Facility US SOFT TISSUE HEAD AND NECK on 02-08-[address] [address] Ultrasound Report Signed Patient: RAMON DUBOIS MR#: [id number] : 1975 Acct:[id number] Age/Sex: 49 / F ADM Date: 02/08/25 Loc: US Attending Dr: Joselyn Arizmendi NP Ordering Physician: Joselyn Arizmendi NP Date of Service: 02/08/25 Procedure(s): US soft tissue head and neck Accession Number(s): [id number] cc: Joselyn Arizmendi NP [place] [id number] Patient Name: RAMON DUBOIS MRN: [id number] date: 1975 Sex: F Assigned Patient Location: Current Patient Location: US Accession/Order Number: [id number] Exam Date: 02/08/2025 16:14 Report Date: 02/08/2025 16:16 At the request of: JOSELYN ARIZMENDI NP Procedure: US soft tissue head and neck US soft tissue head and neck 02/08/2025 2:21 PM SIGNS AND SYMPTOMS: Neck Pain /lump On Left Side PROTOCOL: Grayscale and color sonographic images were obtained in the region of palpable abnormality in the left side of the neck. COMPARISON: None FINDINGS: In the region of palpable abnormality there is a benign-appearing lymph node measuring 1.7 x 0.9 x 0.6 cm in greatest dimension. There is no evidence of mass. No fluid collection. No significant hyperemia. US/US soft tissue head and neck IMPRESSION: In the region of palpable abnormality there is a benign-appearing lymph node measuring 1.7 x 0.9 x 0.6 cm in greatest dimension. Impression dictated by: Sunday Pritchard M.D. 02/08/2025 4:16 PM Dictation Location: [place] [address] Electronically authenticated by: [id number] Y Date: 02/08/2025 16:16 Dictated By: Sunday Pritchard M.D. Signed By: 02/08/251617 DD/ 15 TD/TT: Licensed Vocational Nurse: [facility] Radiology, Radiologist, - 02/08/2025 [place] [address] Ultrasound Report Signed Patient: RAMON DUBOIS MR#: [id number] : 1975 Acct:[id number] Age/Sex: 49 / F ADM Date: 02/08/25 Loc: US Attending Dr: Joselyn Arizmendi NP Ordering Physician: Joselyn Arizmendi NP Date of Service: 02/08/25 Procedure(s): US soft tissue head and neck Accession Number(s): [id number] cc: Joselyn Arizmendi NP [place] [address] Patient Name: RAMON DUBOIS MRN: [facility]:[id number] date: 1975 Sex: F Assigned Patient Location: Current Patient Location: Accession/Order Number: [id number] Exam Date: 02/08/2025 16:14 Report Date: 02/08/2025 16:16 At the request of: JOSELYN ARIZMENDI NP Procedure: US soft tissue head and neck US soft tissue head and neck 02/08/2025 2:21 PM SIGNS AND SYMPTOMS: Neck Pain /lump On Left Side PROTOCOL: Grayscale and color sonographic images were obtained in the region of palpable abnormality in the left side of the neck. COMPARISON: None FINDINGS: In the region of palpable abnormality there is a benign-appearing lymph node measuring 1.7 x 0.9 x 0.6 cm in greatest dimension. There is no evidence of mass. No fluid collection. No significant hyperemia. US/US soft tissue head and neck IMPRESSION: In the region of palpable abnormality there is a benign-appearing lymph node measuring 1.7 x 0.9 x 0.6 cm in greatest dimension. Impression dictated by: Sunday Pritchard M.D. 02/08/2025 4:16 PM Dictation Location: [place] [address] Electronically authenticated by: [id number] Y Date: 02/08/2025 16:16 Dictated By: Sunday Pritchard M.D. Signed By: 02/08/258 DD/ 15 TD/TT: Licensed Vocational Nurse: [facility] Radiology Study observation (narrative) [facility] US SOFT TISSUE HEAD AND NECK Ordered By: Radiologist Radiology on 02-08-2025 [facility] [employer] Work Phone: ALL CBC WITH AUTO DIFFon BASOPHILS ABSOLUTE AUTO 0.0 [facility] Basophils/100 WBC (Bld) 0.8 % 0.2 - 2.0 % [facility] Eosinophils/100 WBC (Bld) 0.8 % Low 0.9 - 7.0 % [facility] Erythrocyte distribution width (RBC) [Ratio] 12.6 % 11.0 - 15.0 % [facility] Hematocrit (Bld) [Volume fraction] 40.0 % 36.0 - 48.0 % [facility] [employer] Hemoglobin (Bld) [Mass/Vol] 13.5 g/dL 12.0 - 16.0 g/dL [facility] IMMATURE GRANULOCYTES ABS AUTO 0.01 [facility] Immature granulocytes/100 WBC (Bld) 0.2 % 0.0 - 0.5 % [facility] Interpretation and review of laboratory results Abnormal [facility] LYMPHOCYTES ABSOLUTE AUTO 1.4 [facility] Lymphocytes/100 WBC (Bld) 29.9 % 20.5 - 60.0 % [facility] MCH (RBC) [Entitic mass] 32.0 pg 26.7 - 34.0 pg [facility] MCHC (RBC) [Mass/Vol] 33.8 g/dL 29.9 - 35.2 g/dL [facility] MCV (RBC) [Entitic vol] 94.8 fL 81.0 - 99.0 fL [facility] MONOCYTES ABSOLUTE AUTO 0.4 [facility] Monocytes/100 WBC (Bld) 8.8 % 1.7 - 12.0 % [facility] NEUTROPHILS ABSOLUTE AUTO 2.8 [facility] Neutrophils/100 WBC (Bld) 59.5 % 43.0 - 75.0 % [facility] Platelet mean volume (Bld) [Entitic vol] 8.8 fL Low 9.5 - 13.5 fL [facility] EO # 0.0 [facility] [...] e GLUCOSE URINE UA Negative NEGATIVE mg/dL [facility] Interpretation and review of laboratory results Abnormal [facility] Ketones Ql (U) Negative NEGATIVE mg/dL [facility] Leukocyte esterase Test strip Ql (U) Negative NEGATIVE [facility] NITRITE URINE Negative NEGATIVE [facility] Health care pH (U) 5.5 [pH] 5.0 - 9.0 [facility] PROTEIN URINE TRACE NEG/TRACE mg/dL [facility] SPECIFIC GRAVITY URINE >=1.030 Abnormal 1.005 - 1.025 [facility] URINE MICROSCOPIC INDICATED NO [facility] UROBILINOGEN URINE 1.0 EU/dL 0.2 - 1.0 EU/dL [facility] MG MAMM SCREEN 3D RODGER CADon 11-25-2022 MG MAMM SCREEN 3D RODGER CAD Patient: RAMON DUBOIS Exam Date: 11/25/2022 : 1975 Gender:F Ordering : CESAR ARIZMENDI [facility] Admission #: [id number] Family : Order #: [id number] CLICK HERE TO VIEW EXAM RADIOLOGY REPORT [...] Treatments None Family Cancers None LOCATION: [facility] BREAST COMPOSITION: Scattered areas fibroglandular density. FINDINGS: [...] M.D. on 11/26/2022 at 12:26 Normal [facility] CBC AUTO DIFFon 11-05-2022 BASO # 0.0 103/ul Normal 0.0-0.1 [facility] Comment on above: Performed By: #### C BC #### [facility] [address] [place] [address] Dr. Steve Tenorio Basophils/100 WBC (Bld) 1.1 % Normal 0.2-2.0 [facility] Comment on above: Performed By: #### C BC #### [facility] [address] [address] [address] Steve Tenorio EO # 0.0 103/ul Normal 0.0-0.7 [facility] Comment on above: Performed By: #### C BC #### [facility] [address] [address] [address] Steve Tenorio Eosinophils/100 WBC (Bld) 0.8 % Critically low 0.9-7.0 [facility] Comment on above: Performed By: #### C BC #### [facility] [address] [place] [address] Dr. Steve Tenorio Erythrocyte distribution width (RBC) [Ratio] 12.4 % Normal 11.0-15.0 [facility] Comment on above: Performed By: #### C BC #### [facility] [address] [place] [address] Dr. Steve Tenorio Hematocrit (Bld) [Volume fraction] 41.2 % Normal 36.0-48.0 [facility] Comment on above: Performed By: #### C BC #### [facility] [address] [place] [address] Dr. Steve Tenorio Hemoglobin (Bld) [Mass/Vol] 14.0 g/dL Normal 12.0-16.0 [facility] Comment on above: Performed By: #### C BC #### [facility] [address] [place] [address] Dr. Steve Tenorio IG # 0.01 10e3/ul Normal 0.00-0.03 [facility] Comment on above: Performed By: #### C BC #### [facility] [address] [place] [address] Dr. Steve Tenorio IG % 0.3 % Normal 0.0-0.5 [facility] Comment on above: Performed By: #### C BC #### [facility] [address] [place] [address] Dr. Steve Tenorio LYMPH # 1.4 103/ul Normal 1.2-3.8 [facility] Comment on above: Performed By: #### C BC #### [facility] [address] [place] [address] Dr. Steve Tenorio Lymphocytes/100 WBC (Bld) 39.3 % Normal 20.5-60.0 [facility] Comment on above: Performed By: #### C BC #### [facility] [address] [place] [address] Dr. Steve Tenorio MANUAL DIFF REQ NO Normal [facility] Comment on above: Performed By: #### C BC #### [facility] [address] [place] [address] Dr. Steve Tenorio MCH (RBC) [Entitic mass] 30.8 pg Normal 26.7-34.0 [facility] Comment on above: Performed By: #### C BC #### [facility] [address] [place] [address] Dr. Steve Tenorio MCHC (RBC) [Mass/Vol] 34.0 g/dL Normal 29.9-35.2 [facility] Comment on above: Performed By: #### C BC #### [facility] [address] [place] [address] Dr. Steve Tenorio MCV (RBC) [Entitic vol] 90.7 fL Normal 81.0-99.0 [facility] Comment on above: Performed By: #### C BC #### [facility] [address] [place] [address] Dr. Steve Tenorio MONO # 0.3 103/ul Normal 0.3-0.8 [facility] Comment on above: Performed By: #### C BC #### [facility] [address] [address] [address] Steve Tenorio Monocytes/100 WBC (Bld) 9.3 % Normal 1.7-12.0 [facility] Comment on above: Performed By: #### C BC #### [facility] [address] [place] [address] Dr. Steve Tenorio NEUT # 1.8 103/ul Normal 1.4-6.5 [facility] Comment on above: Performed By: #### C BC #### [facility] [address] [place] [address] Dr. Steve Tenorio Neutrophils/100 WBC (Bld) 49.2 % Normal 43.0-75.0 [facility] Comment on above: Performed By: #### C BC #### [facility] [address] [place] [address] Dr. Steve Tenorio Platelet mean volume (Bld) [Entitic vol] 8.8 fL Critically low 9.5-13.5 [facility] Comment on above: Performed By: #### C BC #### [facility] [address] [place] [address] Dr. Steve Tenorio PLT 306 103/ul Normal 150-450 [facility] Comment on above: Performed By: #### C BC #### [facility] [address] [place] [address] Dr. Steve Tenorio RBC 4.54 106/ul Normal 4.20-5.40 [facility] Comment on above: Performed By: #### C BC #### [facility] [address] [place] [address] Dr. Steve Tenorio WBC 3.6 103/ul Critically low 4.0-11.0 [facility] Comment on above: Performed By: #### C BC #### [facility] [address] [place] [address] [address] Steve Tenorio LIPID PROFILEon 11-05-2022 CHOL-HDL RATIO NORM SEE BELOW Normal [facility] Comment on above: Result Comment: 3.3 - 4.4 LOW RISK 4.4 - 7.1 AVERAGE RISK 7.1 - 11.0 MODERATE RISK >11.0 HIGH RISK Performed By: #### C MP, LIPID #### [facility] [address] [place] [address] [address] Steve Tenorio Cholesterol [Mass/Vol] 198 mg/dL Normal <=200 [facility] Comment on above: Performed By: #### C MP, LIPID #### [facility] [address] [place] [address] [address] Steve Tenorio Cholesterol in HDL [Mass/Vol] 63 mg/dL Critically high 40-60 [facility] Comment on above: Performed By: #### C MP, LIPID #### [facility] [address] [place] [address] [address] Steve Tenorio Cholesterol in LDL [Mass/Vol] 123.0 mg/dL Normal [facility] Comment on above: Performed By: #### C MP, LIPID #### [facility] [address] [place] [address] Dr. Steve Tenorio Cholesterol.total/Ch olesterol in HDL [Mass ratio] 3.1 {ratio} Normal [facility] Comment on above: Performed By: #### C MP, LIPID #### [facility] [address] [place] [address] [address] Steve Tenorio HDL NORMAL > or = 60 mg/dl - LOW CARDIOVASCULAR RISK <40 mg/dl - HIGH CARDIOVASCULAR RISK Normal [facility] Comment on above: Performed By: #### C MP, LIPID #### [facility] [address] [place] [address] [address] Steve Tenorio LDL CALC NORMAL SEE BELOW Normal [facility] Comment on above: Result Comment: <100 mg/dl OPTIMAL 100 - 129 mg/dl NEAR OR ABOVE OPTIMAL 130 - 159 mg/dl BORDERLINE HIGH 160 - 189 mg/dl HIGH >190 mg/dl VERY HIGH Performed By: #### C MP, LIPID #### [facility] [address] [place] [address] Dr. Steve Tenorio Triglyceride [Mass/Vol] 60 mg/dL Normal <=150 [facility] Comment on above: Performed By: #### C MP, LIPID #### [facility] [address] [place] [address] Dr. Steve Tenorio VLDL CALC 12.0 mg/dL Normal [facility] Comment on above: Performed By: #### C MP, LIPID #### [facility] [address] [place] [address] Dr. Steve Tenorio PROF 14(COMP METB)on 023 Albumin [Mass/Vol] 4.1 g/dL Normal 3.4-5.[address] [facility] Comment on above: Performed By: #### C MP, LIPID #### [facility] [address] [place] [address] Dr. Steve Tenorio Albumin/Globulin [Mass ratio] 1.1 {ratio} Normal [facility] Comment on above: Performed By: #### C MP, LIPID #### [facility] [address] [place] [address] Dr. Steve Tenorio ALP [Catalytic activity/Vol] 84 U/L Normal 46-116 [facility] Comment on above: Performed By: #### C MP, LIPID #### [facility] [address] [place] [address] Dr. Steve Tenorio ALT [Catalytic activity/Vol] 29 U/L Normal 14-59 [facility] Comment on above: Performed By: #### C MP, LIPID #### [facility] [address] [place] [address] Dr. Steve Tenorio Anion gap [Moles/Vol] 14.2 mmol/L Normal [facility] Comment on above: Performed By: #### C MP, LIPID #### [facility] [address] [place] [address] Dr. Steve Tenorio AST [Catalytic activity/Vol] 22 U/L Normal 15-37 [facility] Comment on above: Performed By: #### C MP, LIPID #### [facility] [address] [place] [address] Dr. Steve Tenorio Bilirubin [Mass/Vol] 0.7 mg/dL Normal 0.2-1.0 [facility] Comment on above: Performed By: #### C MP, LIPID #### [facility] [address] [place] [address] Dr. Steve Tenorio Calcium [Mass/Vol] 8.8 mg/dL Normal 8.5-10.[address] [facility] Comment on above: Performed By: #### C MP, LIPID #### [facility] [address] [place] [address] Dr. Steve Tenorio Chloride [Moles/Vol] 104 mmol/L Normal 98-107 [facility] Comment on above: Performed By: #### C MP, LIPID #### [facility] [address] [place] [address] Dr. Steve Tenorio CO2 [Moles/Vol] 25.7 mmol/L Normal 21.0-32.0 [facility] Comment on above: Performed By: #### C MP, LIPID #### [facility] [address] [place] [address] Dr. Steve Tenorio Creatinine [Mass/Vol] 0.56 mg/dL Normal 0.55-1.02 [facility] Comment on above: Performed By: #### C MP, LIPID #### [facility] [address] [place] [address] Dr. Steve Tenorio EGFR-AF HUNGARIAN >60 Normal >=60 [facility] Comment on above: Performed By: #### C MP, LIPID #### [facility] [address] [place] [address] Dr. Steve Tenorio EGFR-NON AF HUNGARIAN >60 Normal >=60 [facility] Comment on above: Performed By: #### C MP, LIPID #### [facility] [address] [place] [address] Dr. Steve Tenorio Globulin (S) [Mass/Vol] 3.6 g/dL Normal [facility] Comment on above: Performed By: #### C MP, LIPID #### [facility] [address] [place] [address] [address] Steve Tenorio Glucose [Mass/Vol] 103 mg/dL Normal 74-106 [facility] Comment on above: Performed By: #### C MP, LIPID #### [facility] [address] [place] [address] [address] Steve Tenorio Potassium [Moles/Vol] 3.9 mmol/L Normal 3.5-5.1 [facility] Comment on above: Performed By: #### C MP, LIPID #### [facility] [address] [address] [address] Steve Tenorio Protein [Mass/Vol] 7.7 g/dL Normal 6.4-8.2 [facility] Comment on above: Performed By: #### C MP, LIPID #### [facility] [address] [place] [address] Dr. Steve Tenorio Sodium [Moles/Vol] 140 mmol/L Normal 136-[address] [facility] Comment on above: Performed By: #### C MP, LIPID #### [facility] [address] [place] [address] Dr. Steve Tenorio Urea nitrogen [Mass/Vol] 10.0 mg/dL Normal 7.0-18.0 [facility] Comment on above: Performed By: #### C MP, LIPID #### [facility] [address] [place] [address] Dr. Steve Tenorio Urea nitrogen/Creatinine [Mass ratio] 17.9 mg/mg Normal [facility] Comment on above: Performed By: #### C MP, LIPID #### [facility] [address] [place] [address] Dr. Steve Tenorio UA RANDOM W/MICROSCOPICon BACTERIA NONE SEEN Normal NONE SEEN [facility] Comment on above: Performed By: #### U AMIC #### [facility] [address] [place] [address] Dr. Steve Tenorio Bilirubin Ql (U) Negative Normal NEGATIVE [facility] Comment on above: Performed By: #### U AMIC #### [facility] [address] [address] [address] Steve Tenorio CAST NONE SEEN Normal NONE SEEN [facility] Comment on above: Performed By: #### U AMIC #### [facility] [address] [address] [address] Steve Tenorio Clarity (U) CLEAR Normal CLEAR [facility] Comment on above: Performed By: #### U AMIC #### [facility] [address] [address] [address] Steve Tenorio Color (U) YELLOW Normal YELLOW [facility] Comment on above: Performed By: #### U AMIC #### [facility] [address] [address] [address] Steve Tenorio Crystals LM Nom (Urine sed) NONE SEEN Normal NONE SEEN [facility] Comment on above: Performed By: #### U AMIC #### [facility] [address] [address] [address] Steve Teonrio Epithelial cells LM Ql (Urine sed) FEW Abnormal NONE SEEN /RARE [facility] Comment on above: Performed By: #### U AMIC #### [facility] [address] [address] [address] Steve Tenorio Glucose Ql (U) Negative Normal NEGATIVE [facility] Comment on above: Performed By: #### U AMIC #### [facility] [address] [address] [address] Steve Tenorio Hemoglobin Ql (U) Negative Normal NEGATIVE [facility] Comment on above: Performed By: #### U AMIC #### [facility] [address] [address] [address] Steve Tenorio Ketones Ql (U) Negative Normal NEGATIVE [facility] Comment on above: Performed By: #### U AMIC #### [facility] [address] [address] [address] Steve Tenorio LEUKOCYTES Negative Normal NEGATIVE [facility] Comment on above: Performed By: #### U AMIC #### [facility] [address] [address] [address] Steve Tenorio MUCOUS SMALL Abnormal NONE SEEN [facility] Comment on above: Performed By: #### U AMIC #### [facility] [address] [address] [address] Steve Tenorio Nitrite Ql (U) Negative Normal NEGATIVE [facility] Comment on above: Performed By: #### U AMIC #### [facility] [address] [address] [address] Steve Tenorio pH (U) 6.0 [pH] Normal 5-9 [facility] Comment on above: Performed By: #### U AMIC #### [facility] [address] [address] [address] Steve Tenorio RBC 5-10 Abnormal 0-2 [facility] Comment on above: Performed By: #### U AMIC #### [facility] [address] [place] [address] Dr. Steve Tenorio SPEC GRAVITY 1.025 Normal 1.005-<=1.025 [facility] Comment on above: Performed By: #### U AMIC #### [facility] [address] [address] [address] Steve Tenorio UA PROTEIN Negative Normal NEGATIVE/ TRACE [facility] Comment on above: Performed By: #### U AMIC #### [facility] [address] [place] [address] Dr. Steve Tenorio Urobilinogen Qn (U) 0.2 {Julissa'U}/dL Normal 0.2 - 1. 0 [facility] Comment on above: Performed By: #### U AMIC #### [facility] [address] [place] [address] Dr. Steve Tenorio WBC 0-2 Abnormal NONE SEEN [facility] Comment on above: Performed By: #### U AMIC #### [facility] [address] [place] [address] Dr. Steve Tenorio ALLIED HEALTHon 02-15-2021 ALLIED HEALTH HNO ID: [id number] Author: GARRISON Mendez Service: ? Author Type: Coffee Sampler Type: Allied Health Filed: 02/15/2021 1:48 PM [...] GARRISON Mendez February 15, 2021 1:48 PM [facility] CTA HEAD W IVCONon CTA HEAD W IVCON * * *Final Report* * * DATE OF EXAM: Feb 15 2021 1:53PM [facility] 0022 - CTA HEAD W IVCON / [...] No vessel cutoffs or aneurysms are identified. Egg And Spice Mixer (topogram) images: Noncontributory. IMPRESSION: No large vessel occlusion or high-grade stenosis. Arterial blood flow was measured to detect acute large vessel occlusion by computer aided detection software: Not Performed. Concordance between software and imaging review: Not Applicable. Licensed Vocational Nurse: CLIFFORD Transcribe Date/Time: Feb 15 2021 2:23P Dictated by : RADHA DUMONT MD This examination was interpreted and the report reviewed and electronically signed by: RADHA DUMONT MD on Feb 15 2021 2:28PM EST [id number] CN [facility] NURSING PROGon 02-15-2021 NURSING PROG HNO ID: [id number] Author: Tanvi Hall RN Service: Radiology Author [...] DATE: February 15, 2021 TIME: 1:33 PM [facility] Vital Signs Date Time Vital Sign Value Performing Clinician Missy holland 01-04-2025 14:12-0400 Body mass index (BMI) [Ratio] 30.42 kg/m2 Joselyn Arizmendi [employer]THOTIC FITTER Work Phone: [facility] 01-04-2025 14:12040 Body temperature 98.49 [degF] Joselyn Aichholz [employer]THOTIC FITTER Work Phone: [facility] 01-04-2025 14:12-0400 Body weight 82.92 kg Joselyn Aichholz [employer]IC [employer]TER Work Phone: [facility] 01-04-2025 14:12-0400 Diastolic blood pressure 80 mm[Hg] Joselyn Aichholz [employer]THOTIC FITTER Work Phone: [facility] 01-04-2025 14:12-0400 Heart rate 86 /min Joselyn Aichholz [employer]THOTIC FITTER Work Phone: [facility] 01-04-2025 14:12-0400 Respiratory rate 18 /min Joselyn Aichholz [employer]THOTIC FITTER Work Phone: [facility] 01-04-2025 14:12-0400 SaO2% (BldA) [Mass fraction] 98 % Joselyn Aichholz [employer]OTIC [employer]TER Work Phone: [facility] 01-04-2025 14:12-0400 Systolic blood pressure 108 mm[Hg] Joselyn Aichholz [employer]THOTIC FITTER Work Phone: [facility] 04-19-2024 14:33-0400 Body height 165.1 cm Joselyn Aichholz [employer]OTIC [employer]TER Work Phone: [facility] 04-19-2024 14:33-0400 Body mass index (BMI) [Ratio] 29.29 kg/m2 Joselyn Aichholz [employer]THOTIC FITTER Work Phone: [facility] 04-19-2024 14:33-0400 Body temperature 97.81 [degF] Joselyn Aichholz [employer]THOTIC FITTER Work Phone: [facility] 04-19-2024 14:33-0400 Body weight 79.83 kg Joselyn Aichholz [employer]THOTIC [employer]TER Work Phone: [facility] 04-19-2024 14:33-0400 Diastolic blood pressure 82 mm[Hg] Joselyn Aichholz ORTHOTIC FITTER Work Phone: [facility] 04-19-2024 14:33-0400 Heart rate 82 /min Joselyn Aichholz [employer]THOTIC FITTER Work Phone: [facility] 04-19-2024 14:33-0400 Respiratory rate 18 /min Joselyn Arizmendi [employer]OTIC [employer]TER Work Phone: [facility] 04-19-2024 14:33-0400 SaO2% (BldA) [Mass fraction] 99 % Joselyn Arizmendi ORTHOTIC FITTER Work Phone: [facility] 04-19-2024 14:33-0400 Systolic blood pressure 118 mm[Hg] Joselyn Arizmendi ORTHOTIC FITTER Work Phone: [facility] Encounters Encounter Date Encounter Type Care Provider Facility Start: 02-08-2025 End: 02-08-2025 Clinisync Result Encounter Joselyn Arizmendi ORTHOTIC FITTER Work Phone: [facility] External Department Unsolicited Start: 02-08-2025 End: 02-08-2025 Clinisync Result Encounter Joselyn Arizmendi [employer]THOTIC FITTER Work Phone: [facility] External Department Unsolicited Start: 02-02-2025 End: 02-02-2025 Refill Joselyn Arizmendi [employer]THOTIC [employer]TER Work Phone: [facility] Comment on above: Neck pain Start: 01-23-2025 End: 01-23-2025 Orders Only Joselyn Arizmendi [employer]TER Work Phone: [facility] Comment on above: Neck pain on left si de (Primary Dx) Start: 01-04-2025 End: 01-04-2025 Office outpatient visit 25 minutes Joselyn Arizmendi [employer]OT[employer]TER Work Phone: [facility] Comment on above: Migraine without sta tus migrainosus, not intractable, unspecified migraine type (CMS/HCC) (Primary Dx); Tobacco user; Obesity (BMI 30-39.9); Colon cancer screening; Screening mammogram for breast cancer; Neck pain on left side; Positive ALEJANDRINA (antinuclear antibody) Start: 01-04-2025 End: 01-04-2025 ambulatory JOSELYN MIKELHOLZ Not Available Start: 12-22-2024 End: 12-22-2024 Refill Joselyn Aichholz [employer]TER Work Phone: [facility] Comment on above: Migraine without sta tus migrainosus, not intractable, unspecified migraine type (CMS/HCC) Start: 11-05-2024 End: 11-07-2024 Refill Joselyn Aichholz [employer]TH[employer]TER Work Phone: [facility] Comment on above: Neck pain; Insomnia; Migraine without status migrainosus, not intractable, unspecified migraine type (CMS/HCC) Start: 11-04-2024 End: 11-07-2024 Refill Joselyn Aichholz [employer]TER Work Phone: [facility] Comment on above: Migraine without sta tus migrainosus, not intractable, unspecified migraine type (CMS/HCC) Start: 08-07-2024 End: 08-07-2024 Refill Joselyn Aichholz [employer]TER Work Phone: [facility] Comment on above: Migraine without sta tus migrainosus, not intractable, unspecified migraine type (CMS/HCC) Start: 08-07-2024 End: 08-07-2024 Telephone encounter Joselyn Aichholz [employer] FITTER Work Phone: [facility] Start: 07-08-2024 End: 07-11-2024 Refill Joselyn Aichholz [employer]TER Work Phone: [facility] Comment on above: Insomnia Start: 07-01-2024 End: 07-01-2024 Refill Joselyn Aichholz [employer]OT[employer]TER Work Phone: [facility] Comment on above: Neck pain Start: 06-12-2024 End: 06-13-2024 Refill Joselyn Aichholz [employer]TER Work Phone: [facility] Comment on above: Insomnia Start: 06-05-2024 End: 06-05-2024 Refill Joselyn Aichholz [employer]OT[employer]TER Work Phone: [facility] Comment on above: Migraine without sta tus migrainosus, not intractable, unspecified migraine type (CMS/HCC) Start: 04-19-2024 End: 04-19-2024 Office outpatient visit 25 minutes Joselyn Arizmendi [employer]TER Work Phone: [facility] Comment on above: Migraine without sta tus migrainosus, not intractable, unspecified migraine type (CMS/HCC) (Primary Dx); Screening mammogram for breast cancer; Positive ALEJANDRINA (antinuclear antibody); Colon cancer screening Start: 04-19-2024 End: 04-19-2024 ambulatory JOSELYN ARIZMENDI Not Available Start: 04-19-2024 End: 04-19-2024 Bamboo flowsheet Joselyn Arizmendi [employer]THOT[employer]TER Work Phone: [facility] Start: 04-19-2024 End: 04-19-2024 Bamboo flowsheet Joselyn Arizmendi [employer]THOT[employer]TER Work Phone: [facility] Start: 04-19-2024 End: 04-19-2024 Clinisync Result Encounter Joselyn Arizmendi [employer]THOT[employer]TER Work Phone: [facility] External Department Unsolicited Start: 04-04-2024 End: 04-04-2024 Orders Only Joselyn Arizmendi [employer]TER Work Phone: [facility] Comment on above: Positive ALEJANDRINA (antinu clear antibody) (Primary Dx) Start: 09-28-2023 Refill Joselyn Arizmendi [employer]TER Work Phone: [facility] Comment on above: Migraine without sta tus migrainosus, not intractable, unspecified migraine type (CMS/HCC) (Primary Dx); Migraine, unspecified, intractable, with status migrainosus (CMS/HCC) Start: 09-27-2023 Refill Joselynrupal Arizmendi [employer]OT[employer]TER Work Phone: [facility] Comment on above: Neck pain (Primary D x); Cervicalgia Start: 11-25-2022 End: 11-26-2022 ambulatory STUDENT SPECIALIST JOSELYN VAL Facility:[facility] Start: 11-05-2022 End: 11-06-2022 ambulatory STUDENT SPECIALIST JOSELYN VAL Facility:[facility] Start: 02-11-2022 End: 02-12-2022 ambulatory KIRAN JEAN Facility:[facility] Procedures Date Procedure Procedure Detail Performing Clinician Start: 02-08-2025 US SOFT TISSUE HEAD AND NECK Joselyn Arizmendi [employer]TER Work Phone: Start: 04-19-2024 ALL CBC WITH AUTO DIFF Joselyn Arizmendi [employer]THOTIC FITTER Work Phone: Start: 04-19-2024 TBH UA (CLEAN/CATCH) MICROSCOPIC IF INDICATE Joselyn Arizmendi [employer]THOTIC FITTER Work Phone: Start: 11-25-2022 Mammography Joselyn west [employer]THOTIC FITTER Work Phone: Start: 04-17-2016 Microscopic observat ion [Identifier] in Cervix by Cyto stain Joselyn Arizmendi [employer]THOTIC FITTER Work Phone: Plan of Treatment Date Care Activity Detail Author Start: 04-10-2025 End: 04-10-2025 Patient encounter procedure 04/10/2025 5:30 PM EDT Office Visit [facility] [address] [place] [phone] Joselyn Arizmendi NP [address] [place] [phone] [facility] Start: 01-23-2025 End: 01-23-2026 US Head and neck soft tissue US head neck soft tissue Imaging Routine Neck pain on left side Expected: 01/23/2025, Expires: 01/23/2026 [facility] Work Phone: Comment on above: Expected: 01/23/2025 , Expires: 01/23/2026 Start: 01-04-2025 End: 01-04-2025 Patient encounter procedure 01/04/2025 2:20 PM EDT Office Visit [facility] [address] [place] [phone] Joselyn Arizmendi NP [address] [place] [address] [facility] Start: 01-04-2025 End: 01-04-2026 Basic metabolic 1998 panel - Serum or Plasma Basic metabolic panel Lab Routine Neck pain on left side Expected: 01/04/2025 (Approximate), Expires: 01/04/2026 [facility] Comment on above: Expected: 01/04/2025 (Approximate), Expires: 01/04/2026 Start: 01-04-2025 End: 01-04-2026 C reactive protein [Mass/volume] in Serum or Plasma C-reactive protein Lab Routine Neck pain on left side Expected: 01/04/2025 (Approximate), Expires: 01/04/2026 [facility] Comment on above: Expected: 01/04/2025 (Approximate), Expires: 01/04/2026 Start: 01-04-2025 End: 01-04-2026 CBC W Auto Differential panel - Blood CBC and differential Lab Routine Neck pain on left side Expected: 01/04/2025 (Approximate), Expires: 01/04/2026 [facility] Comment on above: Expected: 01/04/2025 (Approximate), Expires: 01/04/2026 Start: 01-04-2025 End: 01-04-2026 CT Neck W contrast IV CT soft tissue neck w IV contrast Imaging Routine Neck pain on left side Expected: 01/04/2025 (Approximate), Expires: 01/04/2026 [facility] Comment on above: Expected: 01/04/2025 (Approximate), Expires: 01/04/2026 Start: 01-04-2025 End: 01-04-2026 Erythrocyte sedimentation rate Sedimentation rate, automated Lab Routine Neck pain on left side Expected: 01/04/2025 (Approximate), Expires: 01/04/2026 [facility] Comment on above: Expected: 01/04/2025 (Approximate), Expires: 01/04/2026 Start: 01-04-2025 End: 03-06-2026 MG Breast - bilateral Screening Bilateral screening mammogram Imaging Routine Screening mammogram for breast cancer Expected: 01/04/2025 (Approximate), Expires: 03/06/2026 [facility] Work Phone: Comment on above: Expected: 01/04/2025 (Approximate), Expires: 03/06/2026 Start: 11-23-2024 End: 11-23-2024 Patient encounter procedure 11/23/2024 2:20 PM EDT Office Visit [facility] [address] [place] [address] Joselyn Arizmendi, ORTHOTIC FITTER [address] [place] [phone] [facility] Start: 07-12-2024 End: 07-12-2024 Patient encounter procedure 07/12/2024 2:20 PM EST Office Visit [facility] [address] [place] [phone] Joselyn Arizmendi, ORTHOTIC FITTER [address] [place] [phone] [facility] Start: 05-31-2024 End: 05-31-2024 Patient encounter procedure 05/31/2024 2:20 PM EDT Office Visit [facility] [address] [place] [address] Joselyn Arizmendi, ORTHOTIC FITTER [address] [place] [phone] [facility] Start: 04-19-2024 End: 04-19-2024 [facility] Comment on above: Arrived Start: 04-17-2024 Influenza vaccination Influenza Vacc ine (#1) [facility] Start: 11-26-2023 Screening for malign ant neoplasm of breast Mammogram [facility] Start: 11-03-2023 End: 11-03-2023 Patient encounter procedure 11/03/2023 2:20 PM EDT Office Visit [facility] [address] [place] [phone] Joselyn Arizmendi, ORTHOTIC FITTER [address] [place] [place] [phone] [facility] Start: 04-17-2023 Influenza vaccination Influenza Vacc ine (#1) [facility] Start: 04-17-2019 Screening for malign ant neoplasm of cervix [facility] Start: 2003 Screening for malign ant neoplasm of cervix [facility] Start: 1994 Screening for malign ant neoplasm of cervix Pap Smear [facility] Start: 1973 Screening for malign ant neoplasm of colon [facility] Noninvasive colorect al cancer DNA and occult blood screening [Presence] in Stool Cologuard colon cancer screening Lab Routine Colon cancer screening Ordered: 04/19/2024 [facility] Work Phone: Comment on above: Ordered: 04/19/2024 Payers Date Payer Category Payer Private Health Insurance JAMES ANN [id number] 2022 Unknown JIM FERNANDEZ WANCHESE [facility] [id number] 2022-Present [phone] [place] [id number] 2022 Unknown [id number] 1973 Unknown [id number] 1973 Unknown [id number] 1973 Unknown [id number] 1973 Unknown [id number] 1973 Unknown [id number] 1973 Unknown [id number] 1959 Self-pay [id number] 1961 Unknown [id number] Social History Date Type Detail Facility Start: 07-16-2023 End: 04-19-2024 Tobacco smoking status [facility] Smokes tobacco daily [facility] History of tobacco use [facility]igarette Smoker [facility] Start: 07-16-2023 End: 12-16-2023 Cigarettes smoked current (pack per day) - Reported 0.5 [facility] Start: 07-16-2023 End: 12-16-2023 Tobacco use panel [facility] Start: 1975 Sex Assigned At Not on file N [facility] Start: 11-24-2023 End: 04-19-2024 Tobacco use and exposure Smokeless tobacco non-user [facility] Start: 04-19-2024 End: 01-04-2025 Alcoholic beverage intake Lifetime non-drinker (finding) [facility] Do you belong to any clubs or organizations such as sabianist groups, unions, fraternal or athletic groups, or school groups? No [facility] Are you now , , , , never or living with a partner? [facility] How often to you hav e a drink containing alcohol? Never [facility] How many standard dr inks containing alcohol do you have on a typical day? Patient does not drink [facility] Do you feel stress - tense, restless, nervous, or anxious, or unable to sleep at night because your mind is troubled all the time - these days [OSQ] Only a little [facility] (I/We) worried wheth er (my/our) food would run out before (I/we) got money to buy more. Never true [facility] Start: 11-24-2023 Alcohol Comment caffine: 2-3 cups da jennifer [facility] Clinical Notes 02-12-2022 to 01-04-2025 Joselyn Arizmendi NP - 01/04/2025 6:10 PM EDJayde Arizmendi NP - 01/04/2025 6:10 PM EDCHARLI BOYD - 01/04/2025 2:20 PM EDJayde Arizmendi NP - 01/04/2025 2:20 PM EDTPatient Instructions Note Date & Type Note Facility 01-04-2025 History of Presen t illness Narrative Associated Problem(s): Positive ALEJANDRINA (antinuclear antibody) New referral sent 3rd time Associated Problem(s): Neck pain on left side No obvious mass, no appreciable adenopathy, however very tender Will or CT neck w contrast 1-2 migraines a week Once in a while there is some pain on the left side lower quad Images from the original note were not included. Ramon Dubois is a 49 y.o. female presents with chief complaint of Migraine HPI: Migraine This is a chronic problem. The problem occurs intermittently. The problem has been waxing and waning. The pain does not radiate. The pain quality is similar to prior headaches. The quality of the pain is described as aching, stabbing and throbbing. The pain is at a severity of 8/10. The pain is moderate. Associated symptoms include neck pain, phonophobia and photophobia. Pertinent negatives include no abdominal pain, back pain, coughing, dizziness, ear pain, eye pain, eye redness, fever, nausea, seizures, sore throat or vomiting. Eye watering: '.Nothing aggravates the symptoms. She has tried NSAIDs and triptans (qlipta) for the symptoms. The treatment provided moderate relief. Her past medical history is significant for migraine headaches. SUBJECTIVE: MEDICATIONS: Current Outpatient Medications Medication Instructions SUMAtriptan (Imitrex) 100 MG tablet TAKE 1 [...] for difficulty urinating, dysuria and frequency. Musculoskeletal: Positive for neck pain. Negative for arthralgias, back pain, joint swelling [...] Medical History: Diagnosis Date Anxiety and depression ([facility]) 09/28/2023 Asymptomatic microscopic hematuria 11/03/2023 Equinus contracture of left ankle 11/03/2023 Ganglion of right hand 11/03/2023 Migraine headache ([facility]) 09/28/2023 Neck pain 09/28/2023 Positive ALEJANDRINA [...] in her mother. OBJECTIVE: Visit Vitals BP 108/80 (BP Location: Left arm, Patient Position: Sitting, BP Cuff Size: Adult long) Pulse 86 Temp 98.5 F (Temporal) Resp 18 Wt 182 lb 12.8 oz SpO2 98% BMI 30.42 kg/m Smoking Status Every Day BSA 1.95 m Physical Exam Vitals and nursing note reviewed. Constitutional: General: She is not in acute distress. Appearance: Normal appearance. She is not ill-appearing. HENT: Head: Normocephalic and atraumatic. Right Ear: Tympanic membrane, ear canal and external ear normal. Left Ear: Tympanic membrane, ear canal and external ear normal. Nose: Nose normal. No congestion or rhinorrhea. Mouth/Throat: Mouth: Mucous membranes are moist. Pharynx: No oropharyngeal exudate or posterior oropharyngeal erythema. Eyes: Extraocular Movements: Extraocular movements intact. Conjunctiva/sclera: Conjunctivae normal. Neck: Vascular: No carotid bruit. Cardiovascular: Rate and Rhythm: Normal rate and regular rhythm. Pulses: Normal pulses. Heart sounds: Normal heart sounds. No murmur heard. Pulmonary: Effort: Pulmonary effort is normal. Breath sounds: Normal breath sounds. No wheezing or rhonchi. Abdominal: General: Bowel sounds are normal. There is no distension. Palpations: Abdomen is soft. There is no mass. Tenderness: There is no abdominal tenderness. Musculoskeletal: General: Normal range of motion. Cervical back: Normal range of motion and neck supple. Tenderness (left lateral neck, no definite mass) present. Right lower leg: No edema. Left lower leg: No edema. Lymphadenopathy: Cervical: No cervical adenopathy. Skin: General: Skin is warm and dry. Capillary Refill: Capillary refill takes 2 to 3 seconds. Findings: No rash. Neurological: General: No focal deficit present. Mental Status: She is alert and oriented to person, place, and time. Cranial Nerves: No cranial nerve deficit. Psychiatric: Mood and Affect: Mood normal. Behavior: Behavior normal. Thought Content: Thought content normal. Judgment: Judgment normal. ASSESSMENT AND PLAN: Follow up in about 3 months (around 04/06/2025) for Recheck. Problem List Items Addressed This Visit Migraine headache (CMS/HCC) - Primary Current meds: imitrex, has also been given some samples of qulipta in the past, did not like the qulipta Will continue with imitrex Positive ALEJANDRINA (antinuclear antibody) New referral sent 3rd time Relevant Orders Ambulatory referral to Rheumatology Tobacco user The patient has been advised of the risks of continued smoking: stroke, DE, all forms of cancer, lung disease, and . Options for quitting smoking include: cold turkey, hypnosis, acupuncture, nicotine replacement meds (gum, lozenges, and patches), Buproprion, and Varenicline. At this time pt is encouraged to evaluate their goals for wanting to quit smoking, and reach out to provider when ready to start this process Screening mammogram for breast cancer Relevant Orders Bilateral screening mammogram Obesity (BMI 30-39.9) Discussed with patient their BMI (actual, verses recommended). We have also discussed lifestyle modifications: attempts to perform physical activity as chronic conditions allow, also to monitor dietary intake: increasing protein/fruits/veggies and lowering carb intake (unless contraindicated). Limit sodas, juices, and sugary drinks. Colon cancer screening Ordered cologuard test, still not completed Neck pain on left side No obvious mass, no appreciable adenopathy, however very tender Will or CT neck w contrast Relevant Orders CBC and differential Basic metabolic panel Sedimentation rate, automated C-reactive protein CT soft tissue neck w IV contrast Associated Problem(s): Colon cancer screening Ordered cologuard test, still not completed Associated Problem(s): Obesity (BMI 30-39.9) Discussed with patient their BMI (actual, verses recommended). We have also discussed lifestyle modifications: attempts to perform physical activity as chronic conditions allow, also to monitor dietary intake: increasing protein/fruits/veggies and lowering carb intake (unless contraindicated). Limit sodas, juices, and sugary drinks. Associated Problem(s): Migraine headache (CMS/HCC) Current meds: imitrex, has also been given some samples of qulipta in the past, did not like the qulipta Will continue with imitrex Associated Problem(s): Tobacco user The patient has been advised of the risks of continued smoking: stroke, DE, all forms of cancer, lung disease, and . Options for quitting smoking include: cold turkey, hypnosis, acupuncture, nicotine replacement meds (gum, lozenges, and patches), Buproprion, and Varenicline. 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 My birthday is 1230 1974. My phone number is [phone] am calling because I need a refill on my sumo chip at [facility] in [place]. Can you guys please? I am out of my nicholas trips in and I really need help. My headaches are so bad right now. I can not even go to work. We can you get a refill over to [facility] right away. I appreciate it so much, thank you. My phone number is [phone]. Thank you so much. [facility] 11-07-2024 Miscellaneous Notes Formattin g of this note might be different from the original. 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 My birthday is 1230 1974. My phone number is [phone] am calling because I need a refill on my sumo chip at [facility] in [place]. Can you guys please? I am out of my nicholas trips in and I really need help. My headaches are so bad right now. I can not even go to work. We can you get a refill over to [facility] right away. I appreciate it so much, thank you. My phone number is [phone]. Thank you so much. documented in this encounter [facility] 08-07-2024 Telephone encount er Note Contact pt to see if when she took Qulpita helped with her migraines or not SATISH [facility] 08-07-2024 Miscellaneous Notes Formattin g of this note might be different from the original. Contact pt to see if when she took Qulpita helped with her migraines or not SATISH documented in this encounter [facility] 04-19-2024 History of Presen t illness Narrative Associated Problem(s): Migraine headache (CMS/HCC) Will trial Qlipta 60mg daily #4 samples [id number], exp 07/11, Associated Problem(s): Colon cancer screening [...] Medical History: Diagnosis Date Anxiety and depression ([facility]) 09/28/2023 Asymptomatic microscopic hematuria 11/03/2023 Equinus contracture of left ankle 11/03/2023 Ganglion of right hand 11/03/2023 Migraine headache ([facility]) 09/28/2023 Neck pain 09/28/2023 Positive ALEJANDRINA [...] Will trial Qlipta 60mg daily #4 samples [id number], exp 07/11, Positive ALEJANDRINA (antinuclear antibody) New referral sent Relevant Orders Ambulatory referral to Rheumatology Screening mammogram for breast cancer - Primary Re order mammogram Colon cancer screening Will resend new cologuard Relevant Orders Cologuard colon cancer screening documented in this encounter [facility] 02-12-2022 Note PROCEDURE: XR FOOT L T [...] HAYDEE DE JESUS Date: 2022-02-12 07:21 [facility] Evaluation note Diagnosis Migraine without status migrainosus, not intractable, unspecified migraine type (CMS/HCC)- Primary Migraine, unspecified, intractable, with status migrainosus (CMS/HCC) [facility] Diagnosis Neck pain- Primary Cervicalgia [...] for malignant neoplasms, colon Neck pain Cervicalgia Insomnia Insomnia, unspecified Migraine without status migrainosus, not intractable, unspecified [...] not intractable, unspecified migraine type (CMS/HCC)- Primary Tobacco user Tobacco use disorder Obesity (BMI 30-39.9) Colon cancer screening Special screening for malignant neoplasms, colon Screening mammogram for breast cancer Neck pain on left side Positive ALEJANDRINA (antinuclear antibody) Other and unspecified nonspecific immunological findings documented [...] not intractable, unspecified migraine type (CMS/HCC)- Primary Tobacco user Tobacco use disorder Obesity (BMI 30-39.9) Colon cancer screening Special screening for malignant neoplasms, colon Screening mammogram for breast cancer Neck pain on left side Positive ALEJANDRINA (antinuclear antibody) Other and unspecified nonspecific immunological findings Neck pain on left side- Primary [facility] Diagnosis Herpes zoster without complication- Primary Tobacco user Tobacco use disorder Screening mammogram for breast cancer Migraine without status migrainosus, not intractable, unspecified migraine type- Primary Screening mammogram for breast cancer Positive ALEJANDRINA (antinuclear antibody) Other and unspecified nonspecific immunological findings Colon cancer screening Special screening for malignant neoplasms, colon Migraine without status migrainosus, not intractable, unspecified migraine type- Primary Tobacco user Tobacco use disorder Obesity (BMI 30-39.9) Colon cancer screening Special screening for malignant neoplasms, colon Screening mammogram for breast cancer Neck pain on left side Positive ALEJANDRINA (antinuclear antibody) Other and unspecified nonspecific immunological findings Neck pain Cervicalgia [facility] Consultation (Routine) - Pending Review Specialty Diagnoses / Procedures Referred By Contac t Referred To Contact Rheumatology Diagnoses Positive ALEJANDRINA (antinuclear antibody) Procedures [place] OFFICE/OUTPATIENT NEW HIGH MDM 60 MINUTES Joselyn Arizmendi NP [address] [place] [address] Stas Harding MD [facility] [address] [address] Referral ID Status Reason Start Date Expiration Date Visits Requested Visits Authorized [id number] Pending Review Specialty Services Required 04/04/2024 10/01/2024 1 1 [facility] Consultation (Routine) - Pending Review Specialty Diagnoses / Procedures Referred By Tania t Referred To Contact Rheumatology Diagnoses Positive ALEJANDRINA (antinuclear antibody) Procedures [place] OFFICE/OUTPATIENT NEW HIGH MDM 60 MINUTES Joselyn Arizmendi, BOBBY [address] [place] [address] [place] [address] [place] [address] [address] [place] [address] Referral ID Status Reason Start Date Expiration Date Visits Requested Visits Authorized [id number] Pending Review Specialty Services Required 04/19/2024 10/16/2024 1 1 [facility] Summary Purpose Family History No Family History Records FoundNo Family History Records FoundNo Family History Records Found Advance Directives No Advanced Directives Records FoundNo Advanced Directives Records FoundNo Advanced Directives Records Found Additional Source Comments INFORMATION SOURCE (unrecogn ized section and content) DATE CREATED AUTHOR 02/17/2021 [facility] DATE CREATED AUTHOR AUTHOR'S ORGANIZ ATION 11/30/2022 [facility] DATE CREATED AUTHOR AUTHOR'S ORGANIZ ATION 01/11/2025 [facility] EPIC Reason for Visit (unrecogniz ed section and content) Reason Comments Med Refill Reason Onset Date Comments Med Refill 12/22/2024 Reason Comments Migraine Care Teams (unrecognized sec tion and content) Online Facilitator Relationship Specialty Start Date End Date Michael Tellez MD [address] [place] [address] PCP - General Family Medicine 09/22/23 Joselyn Arizmendi NP [address] [place] [address] Referring Physician Nurse Practitioner 03/03/23 Online Facilitator Relationship Specialty Start Date End Date Michael Tellez MD [address] [place] [address] PCP - General Family Medicine 09/22/23 Joselyn Arizmendi NP [address] [place] [address] Referring Physician Nurse Practitioner 03/03/23 Online Facilitator Relationship Specialty Start Date End Date Michael Tellez MD [address] [place] [address] PCP - General Family Medicine 09/22/23 Joselyn Arizmendi NP [address] [place] [address] Referring Physician Nurse Practitioner 03/03/23 Online Facilitator Relationship Specialty Start Date End Date Michael Tellez MD [address] [place] [address] PCP - General Family Medicine 09/22/23 Joselyn Arizmendi NP [address] [place] [address] Referring Physician Nurse Practitioner 03/03/23 Online Facilitator Relationship Specialty Start Date End Date Michael Tellez MD [address] [place] [address] PCP - General Family Medicine 09/22/23 Joselyn Arizmendi NP [address] [place] [address] Referring Physician Nurse Practitioner 03/03/23 Online Facilitator Relationship Specialty Start Date End Date Michael Tellez MD [address] [place] [address] PCP - General Family Medicine 09/22/23 Joselyn Arizmendi NP [address] [place] [address] Referring Physician Nurse Practitioner 03/03/23 Online Facilitator Relationship Specialty Start Date End Date Michael Tellez MD [address] [place] [address] PCP - General Family Medicine 09/22/23 Joselyn Arizmendi NP [address] [place] [address] Referring Physician Nurse Practitioner 03/03/23 Online Facilitator Relationship Specialty Start Date End Date Michael Tellez MD [address] [place] [address] PCP - General Family Medicine 09/22/23 Joselyn Arizmendi NP [address] [place] [address] Referring Physician Nurse Practitioner 03/03/23 Online Facilitator Relationship Specialty Start Date End Date Michael Tellez MD [address] [place] [address] PCP - General Family Medicine 09/22/23 Joselyn Arizmendi NP [address] [place] [address] Referring Physician Nurse Practitioner 03/03/23 Online Facilitator Relationship Specialty Start Date End Date Michael Tellez MD [address] [place] [address] PCP - General Family Medicine 09/22/23 Joselyn Arizmendi NP [address] [place] [address] Referring Physician Nurse Practitioner 03/03/23 Online Facilitator Relationship Specialty Start Date End Date Michael Tellez MD [address] [place] [address] PCP - General Family Medicine 09/22/23 Joselyn Arizmendi NP [address] [place] [address] Referring Physician Nurse Practitioner 03/03/23 Online Facilitator Relationship Specialty Start Date End Date Michael Tellez MD [address] [place] [address] PCP - General Family Medicine 09/22/23 Joselyn Arizmendi NP [address] [place] [address] Referring Physician Nurse Practitioner 03/03/23 Online Facilitator Relationship Specialty Start Date End Date Micheal Tellez MD [address] [place] [address] PCP - General Family Medicine 09/22/23 Joselyn Arizmendi NP [address] [place] [address] Referring Physician Nurse Practitioner 03/03/23 FOR RECORDS [...] BE BASED ON THE PRIMARY CLINICAL RECORDS. [employer] [facility]. provides no warranty or guarantee of the accuracy or completeness of information in this document.
--- NOTE | 2025-02-14 20:44 | CT_ITS ---
The [address] [address] Patient Name: MER DUBOIS MRN: [id number] date: 1975 Sex: F Assigned Patient Location: ER Current Patient Location: ER Accession/Order Number: [id number] Exam Date: 02/14/2025 21:16 Report Date: 02/14/2025 21:20 At the request of: LUCAS JACOB MD Procedure: CT abdomen pelvis wo con CT Abdomen and Pelvis withoutcontrast TECHNIQUE: Axial imaging with 2-D reconstruction. . The CT exam was performed using one or more the following dose reduction techniques: Automated exposure control, adjustment of the MA and/or Kv according to patient size, or use of the iterative reconstruction technique. COMPARISON: 09/16/2020 History: Left flank pain LIMITATIONS: None LOWER THORAX Unremarkable LIVER: Unremarkable GALLBLADDER: No gallbladder abnormality identified. BILE DUCTS: No dilatation SPLEEN: Unremarkable PANCREAS: Unremarkable ADRENAL GLANDS: Unremarkable KIDNEYS:Punctate bilateral nephrolithiasis. Moderate left hydronephrosis and hydroureter with obstructing 6 mm left UVJ stone. AORTA: No abdominal aortic aneurysm identified. RETROPERITONEUM: No significant retroperitoneal abnormalities identified. MESENTERY:Unremarkable STOMACH:Unremarkable SMALL BOWEL: The small bowel loops are nondistended. APPENDIX: The appendix is normal. COLON: Unremarkable URINARY BLADDER: Urinary bladder is unremarkable. REPRODUCTIVE SYSTEM: Reproductive structures are unremarkable. PNEUMOPERITONEUM: None PERITONEAL FLUID:None BONY STRUCTURES: Unremarkable ABDOMINAL WALL: Unremarkable CT/CT abdomen pelvis wo con IMPRESSION: 6mm left UVJ obstructing stone with moderate hydronephrosis and hydroureter. Punctate bilateral nephrolithiasis. Impression dictated by: Bob Liang M.D. 02/14/2025 9:20 PM Dictation Location: [place] [address] Electronically authenticated by: [id number] Y Date: 02/14/2025 21:20
--- NOTE | 2025-02-14 20:46 | ED.FEMALEGU1 ---
HPI - Female Genitourinary General Chief complaint: Urogenital-Female Stated complaint: ABDOMINAL /FLANK PAIN Time Seen by Provider: 02/14/25 20:41 Source: patient Mode of arrival: Wheelchair Limitations: no limitations History of Present Illness HPI Narrative: This 49-year-old female status post hysterectomy with a history of kidney stones in the past presents for evaluation of acute onset of severe left-sided flank pain that goes into her left lower quadrant associated with nausea. She states she feels like she is in labor. She states the last time she urinated it was clear. She had a kidney stone in the remote past that did not require any surgical intervention or lithotripsy. She denies any fever. She denies any chest pain or shortness of breath. Related Data Home Medications ?Medication ?Instructions ?Recorded ?Confirmed etodolac 400 mg tablet mg 10/24/24 sumatriptan succinate 100 mg tablet mg PO 10/24/24 tizanidine 4 mg tablet mg 10/24/24 trazodone 50 mg tablet mg 10/24/24 Allergies Allergy/AdvReac Type Severity Reaction Status Date / Time No Known Drug Allergies Allergy Verified 02/14/25 20:42 Review of Systems ROS Status of ROS 10 or more systems reviewed and unremarkable except as noted in history and below PFSH PFSH Social History Little interest or pleasure in doing things: not at all Feeling down, depressed, or hopeless: not at all Exam Narrative Exam Narrative: Vital signs and Nursing Notes reviewed: Patient is afebrile with a normal pulse, blood pressure is elevated 151/88, she is tachypneic with a respirate of 24, she is not hypoxic with pulse ox of 100% on room air General: Awake, alert, oriented, uncomfortable appearing female, she is tearful and grimacing holding her left flank, no respiratory distress, no active vomiting HEENT: Normocephalic atraumatic, mucous membranes are moist and pink, eyes are clear, normal conjunctiva, vision is grossly intact Neck: Supple, no meningeal signs, no anterior or posterior cervical lymphadenopathy Chest: Lungs are clear to auscultation with good air entry, there is no wheezing rhonchi or rales appreciated no accessory muscle use, patient is speaking in complete sentences-no chest wall tenderness to palpation CVS: Regular rate and rhythm S1-S2, no murmurs rubs or gallops, pulses are brisk and equal bilaterally ABD: Soft, nondistended, there is no tenderness in the right lower quadrant. There is tenderness to palpation in the left flank and along the distribution of the left ureter and in the left lower quadrant of the abdomen. Extremities: Moving all extremities, no lower extremity tenderness or swelling noted, negative Homans' sign, pulses are brisk and equal bilaterally Skin: Normal in appearance without rash,pallor, petechiae or purpura Neuro: No focal deficits Constitutional Vital Signs, click to edit/add: Last Vital Signs Temp 97.8 F 02/14/25 20:38 Pulse 80 02/14/25 22:24 Resp 14 02/14/25 22:24 BP 140/89 02/14/25 22:24 Pulse Ox 98 02/14/25 22:24 O2 Del Method Room Air 02/14/25 22:24 Course Vital Signs Vital signs: Vital Signs Temperature 97.8 F 02/14/25 20:38 Pulse Rate 94 H 02/14/25 20:38 Respiratory Rate 24 H 02/14/25 20:38 Blood Pressure 151/88 H 02/14/25 20:38 Pulse Oximetry 100 02/14/25 20:38 Oxygen Delivery Method Room Air 02/14/25 20:38 Temperature 97.8 F 02/14/25 20:38 Pulse Rate 80 02/14/25 22:24 Respiratory Rate 14 02/14/25 22:24 Blood Pressure 140/89 02/14/25 22:24 Pulse Oximetry 98 02/14/25 22:24 Oxygen Delivery Method Room Air 02/14/25 22:24 MDM - Female Genitourinary MDM Narrative Medical decision making narrative: This 49-year-old female with a history of kidney stones presents for evaluation of acute onset of left flank pain radiating into the left lower quadrant associated with nausea. She has not had any fever or urinary symptoms. She has never had to have lithotripsy or kidney surgery in the past. She is status post hysterectomy. Upon arrival she was crying in pain. An IV was established and she was medicated with IV fluids, Zofran, Toradol and a milligram of Dilaudid. Routine labs are reviewed. She has a normal white count and stable hemoglobin. Electrolytes are normal with the mild elevation in her creatinine at 1.29. Urinalysis is negative for infection. CT scan of the abdomen pelvis without IV contrast was ordered and shows a 6 mm left UVJ obstructing stone with moderate hydronephrosis and hydroureter. The remainder of the CT scan was normal. After the CT scan her pain recurred and she was given an additional dose of IV Dilaudid and oral Percocet. She remained comfortable and hemodynamically stable in the emergency department. She will be referred to outpatient neurology and discharged home with 2 Percocet to use overnight as well as a home pack of Zofran and prescription for Flomax, Percocet and Zofran with recommendation for increasing p.o. fluids and return to the emergency department for fever, worsening symptoms or any concerns. Lab Data Attestation: I reviewed the patient's lab results. Labs: Lab Results 02/14/25 02/14/25 Range/Units 20:49 22:30 WBC 9.4 (4.0-11.0) 10^3/uL RBC 4.22 (4.20-5.40) 10^6/uL Hgb 13.5 (12.0-16.0) g/dL Hct 39.6 (36.0-48.0) % MCV 93.8 (81.0-99.0) fL MCH 32.0 (26.7-34.0) pg MCHC 34.1 (29.9-35.2) g/dL RDW 12.8 (11.0-15.0) % Plt Count 302 (150-450) 10^3/uL MPV 9.1 L (9.5-13.5) fL Neut % (Auto) 75.6 H (43.0-75.0) % Lymph % (Auto) 12.3 L (20.5-60.0) % Haakon % (Auto) 10.6 (1.7-12.0) % Eos % (Auto) 0.5 L (0.9-7.0) % Baso % (Auto) 0.7 (0.2-2.0) % Neut # (Auto) 7.1 H (1.4-6.5) 10^3/uL Lymph # (Auto) 1.2 (1.2-3.8) 10^3/uL Haakon # (Auto) 1.0 H (0.3-0.8) 10^3/uL Eos # (Auto) 0.1 (0.0-0.7) 10^3/uL Baso # (Auto) 0.1 (0.0-0.1) 10^3/uL Abs Immat Gran (auto) 0.03 (0.00-0.03) 10^3/uL Imm/Tot Granulo (auto) 0.3 (0.0-0.5) % Sodium 143 (136-145) mmol/L Potassium 4.4 (3.5-5.1) mmol/L Chloride 106 (98-107) mmol/L Carbon Dioxide 23.9 (21.0-32.0) mmol/L Anion Gap 17.5 BUN 18.0 (7.0-18.0) mg/dL Creatinine 1.29 H (0.55-1.02) mg/dL Est GFR ( Amer) 53 L (>=60 mL/min/1.73m^2) Est GFR (Non-Af Amer) 44 L (>=60 mL/min/1.73m^2) BUN/Creatinine Ratio 14.0 Glucose 135 H (74-106) mg/dL Calcium 9.4 (8.5-10.1) mg/dL Total Bilirubin 0.5 (0.2-1.0) mg/dL AST 32 (15-37) U/L ALT 43 (14-59) U/L Alkaline Phosphatase 108 (46-116) U/L Total Protein 8.1 (6.4-8.2) g/dL Albumin 3.9 (3.4-5.0) g/dL Globulin 4.2 g/dL Albumin/Globulin Ratio 0.9 Urine Color Lt. yellow (YELLOW) Urine Clarity Clear (CLEAR) Urine pH 6.0 (5.0-9.0) Ur Specific [place] 1.025 (1.005-1.025) Urine Protein Negative (NEG/TRACE) mg/dL Urine Glucose (UA) Negative (NEGATIVE) mg/dL Urine Ketones Negative (NEGATIVE) mg/dL Urine Occult Blood Small A (NEGATIVE) Urine Nitrite Negative (NEGATIVE) Urine Bilirubin Negative (NEGATIVE) Urine Urobilinogen 0.2 (0.2-1.0) EU/dL Ur Leukocyte Esterase Negative (NEGATIVE) Urine RBC 5-10 A (0-2) #/HPF Urine WBC 0-2 A (NONE SEEN) #/HPF Ur Squamous Epith Cells Rare (NONE/RARE) #/LPF Urine Crystals None seen (None Seen) #/HPF Urine Bacteria None seen (NONE SEEN) #/HPF Urine Casts None seen (NONE SEEN) #/LPF Urine Mucus None seen (NONE SEEN) Ur Culture Indicated? No Discharge Plan Discharge Chief Complaint: Urogenital-Female Clinical Impression: Kidney stone on left side Patient Disposition: Home, Self-Care Time of Disposition Decision: 23:08 Condition: Good Prescriptions / Home Meds: No Action trazodone 50 mg tablet tizanidine 4 mg tablet sumatriptan succinate 100 mg tablet PO etodolac 400 mg tablet Print Language: Micronesian Instructions: Kidney Stones (ED), Hydronephrosis (ED) Referrals: Aparna Kramer MD [Physician, Urology] - As soon as possible Joselyn Arizmendi NP [Primary Care Provider, Family Practice] - 1 week
[2025-02-14] MEDS: KETOROLAC TROMETHAMINE 30 MG/ML VIAL IVP (20:52)
[2025-02-14 20:55] LABS: Hematocrit 39.6 % (36.0-48.0); Hemoglobin 13.5 g/dL (12.0-16.0); Immature Granulocytes Abs Auto 0.03 10^3/uL (0.00-0.03); Immature Granulocytes Pct Auto 0.3 % (0.0-0.5); Lymphocytes Absolute Auto 1.2 10^3/uL (1.2-3.8); Mean Corpuscular HGB Conc 34.1 g/dL (29.9-35.2); Mean Corpuscular Hemoglobin 32.0 pg (26.7-34.0); Mean Corpuscular Volume 93.8 fL (81.0-99.0); Platelet Count 302 10^3/uL (150-450); Red Blood Count 4.22 10^6/uL (4.20-5.40); White Blood Count 9.4 10^3/uL (4.0-11.0)
[2025-02-14] MEDS: HYDROMORPHONE HCL 1 MG/ML CARTRIDGE IV ×2 (20:55→22:10)
[2025-02-14 21:10] LABS: Alanine Aminotransferase 43 U/L (14-59); Albumin Globulin Ratio 0.9; Albumin Level 3.9 g/dL (3.4-5.0); Alkaline Phosphatase 108 U/L (46-116); Anion Gap 17.5; Aspartate Amino Transferase 32 U/L (15-37); Blood Urea Nitrogen 18.0 mg/dL (7.0-18.0); Calcium 9.4 mg/dL (8.5-10.1); Carbon Dioxide 23.9 mmol/L (21.0-32.0); Chloride 106 mmol/L (98-107); Estimated GFR (African America 53 (>=60 mL/min/1.73m^2); Estimated GFR (Non-African Ame 44 (>=60 mL/min/1.73m^2); Globulin 4.2 g/dL; Glucose 135 mg/dL (74-106); Potassium 4.4 mmol/L (3.5-5.1); Sodium 143 mmol/L (136-145); Total Protein 8.1 g/dL (6.4-8.2)
[2025-02-14] MEDS: OXYCODONE HCL/ACETAMINOPHEN 5MG/325MG 1 TAB PO ×2 (22:15→23:11)
[2025-02-14 22:24] VITALS: BP 140/89; PULSE 80; O2SAT 98
[2025-02-14 22:50] LABS: Glucose Urine UA NEGATIVE (NEGATIVE)
[2025-02-14 23:01] LABS: Cast Seen? NONE SEEN #/LPF (NONE SEEN); Crystals Seen? None Seen #/HPF (None Seen); Urine Culture Indicated NO
[2025-02-14] MEDS: ONDANSETRON 4 MG RAPDIS TABLET SL (23:11)
== END 2025-02-14 23:33 | disposition home or self-care (01) ==
PROVIDERS: Emergency Provider Emergency Medicine; PCP Nurse Practitioner
DX: N13.2 Hydronephrosis with renal and ureteral calculous obstruction (principal); Z90.710 Acquired absence of both cervix and uterus; Z87.442 Personal history of urinary calculi
CPT/HCPCS: 36415; 74176; 80053; 81001; 85025; 96374; 96375; 96376; 99285; J1171; J1885; J2405; Q0162

== ENCOUNTER 2025-05-17 14:22 | Outpatient (OUT) | payer OTHER, SELFPAY ==
--- OUTSIDE RECORDS SUMMARY | 2025-02-28 13:30 | XMS_ITS ---
Author Name Auto Generated Organization OHIP Care Team Providers Care Student Life Coordinator Name Role Phone Missael MURRY Attending Unavailable BAR NAEL Attending Unavailable PROBLEMS No Problem Records Found PROCEDURES No Procedure Records Found RESULTS No Result Records Found ALLERGIES No Allergies Records Found ENCOUNTERS ADMIT/DISCHARGE ACCOUNT NUMBER ADMITTING ENCOUNTER CLASS LOCATION SOURCE 02/28/2025/ 5 [id number] [place] [facility] 02/15/[id number] [facility] 01/04/2025/ 5 [id number] Ambulatory Building:[facility] EPIC PAYERS ENCOUNTER GUARANTOR PAYER SUBSCRIBER SOURCE 02/28/2025 SHER[facility]OB[phone] (HP) Primary Insurance:[facility] s Insurance CompanyPolicy Number: [id number] Date:[id number] [address]JB: [id number] SHERLY CASTRO [facility] 01/04/2025 MER PRASADDOB: [birth year] [place], [place] [address]Afe: (HP) Primary Insurance:JIM Dalton Number: [id number] Date:2022-08-17 MER PRASADDOB: [id number] [birth year] [place] [address] [facility] EPIC
--- NOTE | 2025-05-17 14:25 | MM_ITS ---
Patient Name: MER DUBOIS MR#: [id number] : 1975 Exam Date: 05/17/2025 Ordering Doctor: CESAR NEAL CNP RADIOLOGY REPORT PROCEDURE: MM TOMOSYNTHESIS SCREENING BI COMPARISON: MG MAMM SCREEN 3D RODGER CAD, 11/25/2022. MAMMO POST BIOPSY BILATERAL, 09/17/2021. MG MAMM RODGER DIAG W CAD, 08/13/2021. INDICATIONS: Screening Calculator Name NCI Breast Cancer Risk Assessment Tool 5 Year Breast Cancer Risk Not Reported. Lifetime Breast Cancer Risk Not Reported. Personal Breast Cancer No Personal Ovarian Cancer No Treatments None Family Cancers None LOCATION: [facility] BREAST COMPOSITION: There are scattered areas of fibroglandular density. FINDINGS: DIAGNOSTIC CATEGORY 1--NEGATIVE. RIGHT BREAST: No significant suspicious finding. LEFT BREAST: No significant suspicious finding. RECOMMENDATIONS: ROUTINE MAMMOGRAM AND CLINICAL EVALUATION IN 12 MONTHS. Dictated by: Nathen Santiago DO on 05/17/2025 at 15:32 Approved by: Nathen Santiago DO on 05/17/2025 at 15:33
== END 2025-05-17 14:23 | disposition home or self-care (01) ==
LOC: MAMMO 14:22
PROVIDERS: PCP Nurse Practitioner; Visit Provider Nurse Practitioner
DX: Z12.31 Encounter for screening mammogram for malignant neoplasm of breast (principal)
CPT/HCPCS: 77063; 77067